=== PATIENT | female | born 1980 | race American Indian/Alaskan Native ===

== ENCOUNTER 2019-09-27 19:33 | Emergency (ER) | payer SELFPAY ==
[2019-09-27 22:54] LABS: Basophils # (Auto) 0.1 K/mm3 (0.0-0.1); Basophils % (Auto) 0.7 % (0.0-1.8); Eosinophils # (Auto) 0.2 K/mm3 (0.0-0.4); Eosinophils % (Auto) 1.7 % (0.0-4.3); Hematocrit 44.2 % (30.3-42.9); Hemoglobin 14.2 gm/dl (10.1-14.3); Lymphocytes # (Auto) 2.6 K/mm3 (1.2-5.4); Lymphocytes % (Auto) 21.2 % (13.4-35.0); Mean Corpuscular HGB Conc 32 % (30-34); Mean Corpuscular Volume 84 fl (79-97); Monocytes # (Auto) 0.9 K/mm3 (0.0-0.8); Monocytes % (Auto) 7.5 % (0.0-7.3); Platelet Count 336 K/mm3 (140-440); Red Blood Count 5.29 M/mm3 (3.65-5.03); Red Cell Distribution Width 15.7 % (13.2-15.2)
[2019-09-27 23:07] LABS: BUN/Creatinine Ratio 9; Blood Urea Nitrogen 9 mg/dL (7-17); Calcium 10.2 mg/dL (8.4-10.2); Hemolysis Index 2
[2019-09-28 01:26] LABS: Bilirubin,Urine NEG (Negative); Blood,Urine LG (Negative); Color,Urine Red (Yellow); Mucus,Urine FEW /HPF; Urobilinogen,Urine < 2.0 mg/dL (<2.0)
[2019-09-28] MEDS ORDERED: amLODIPine 5 MG TAB PO ONE (03:05)
[2019-09-28] MEDS ORDERED: hydroCHLOROthiazide 25 MG TAB PO ONE (03:06)
--- NOTE | 2019-09-28 03:16 | Emergency Department Report ---
ED General Adult HPI - General Chief complaint: Hyperglycemia Stated complaint: BLURRED VISION/HIGH BLOOD SUGAR/BP Time Seen by Provider: 09/28/19 02:50 Source: patient Mode of arrival: Ambulatory Limitations: No Limitations - History of Present Illness Initial comments: Patient presents to the emergency department the chief complaint of blurred vision for the last 2 days. The patient states due to her blurry vision scan to the emergency department where was discovered that her blood pressure and blood glucose levels were elevated. Patient denies a history of hypertension or diabetes but states her mother has diabetes. Patient denies chest pain but does endorse some dizziness is present for the last 2 days as well. My evaluation the patient's blood pressure is 196/131 -: unknown Severity scale (0 -10): 0 Consistency: constant Improves with: none Worsens with: none Associated Symptoms: denies other symptoms Treatments Prior to Arrival: none - Related Data Previous Rx's Medication Instructions Recorded Last Taken Type amLODIPine [Norvasc] 10 mg PO DAILY #30 tab 09/28/19 Unknown Rx hydroCHLOROthiazide [Hctz] 12.5 mg PO QDAY #30 capsule 09/28/19 Unknown Rx metFORMIN [Glucophage] 500 mg PO QDAY #30 tablet 09/28/19 Unknown Rx Allergies Allergy/AdvReac Type Severity Reaction Status Date / Time No Known Allergies Allergy Unverified 09/27/19 22:07 ED Review of Systems ROS: Stated complaint: BLURRED VISION/HIGH BLOOD SUGAR/BP Other details as noted in HPI Comment: All other systems reviewed and negative Constitutional: denies: chills, fever Eyes: vision change. denies: eye pain, eye discharge ENT: denies: ear pain, throat pain Respiratory: denies: cough, shortness of breath, wheezing Cardiovascular: denies: chest pain, palpitations Endocrine: no symptoms reported Gastrointestinal: denies: abdominal pain, nausea, diarrhea Genitourinary: denies: urgency, dysuria, discharge Musculoskeletal: denies: back pain, joint swelling, arthralgia Skin: denies: rash, lesions Neurological: denies: headache, weakness, paresthesias Psychiatric: denies: anxiety, depression Hematological/Lymphatic: denies: easy bleeding, easy bruising ED Past Medical Hx - Past Medical History Previous Medical History?: Yes Hx Hypertension: Yes Additional medical history: Morbid Obesity - Surgical History Past Surgical History?: No - Social History Smoking Status: Current Every Day Smoker Substance Use Type: None - Medications Home Medications: Home Medications Medication Instructions Recorded Confirmed Last Taken Type amLODIPine [Norvasc] 10 mg PO DAILY #30 tab 09/28/19 Unknown Rx hydroCHLOROthiazide [Hctz] 12.5 mg PO QDAY #30 capsule 09/28/19 Unknown Rx metFORMIN [Glucophage] 500 mg PO QDAY #30 tablet 09/28/19 Unknown Rx ED Physical Exam - General Limitations: No Limitations General appearance: alert, in no apparent distress - Head Head exam: Present: atraumatic, normocephalic - Eye Eye exam: Present: normal appearance, PERRL, EOMI - ENT ENT exam: Present: mucous membranes moist - Neck Neck exam: Present: normal inspection - Respiratory Respiratory exam: Present: normal lung sounds bilaterally. Absent: respiratory distress - Cardiovascular Cardiovascular Exam: Present: regular rate, normal rhythm. Absent: systolic murmur, diastolic murmur, rubs, gallop - GI/Abdominal GI/Abdominal exam: Present: soft, normal bowel sounds. Absent: distended, tenderness - Extremities Exam Extremities exam: Present: normal inspection - Back Exam Back exam: Present: normal inspection - Neurological Exam Neurological exam: Present: alert, oriented X3, CN II-XII intact, normal gait. Absent: motor sensory deficit - Psychiatric Psychiatric exam: Present: normal affect, normal mood - Skin Skin exam: Present: warm, dry, intact, normal color. Absent: rash ED Course Vital Signs 09/27/19 09/28/19 09/28/19 19:54 03:06 03:52 Temperature 98.3 F 98 F Pulse Rate 111 H 111 H 111 H Respiratory 20 18 Rate Blood Pressure 190/119 196/131 Blood Pressure 196/131 [Right] O2 Sat by Pulse 96 100 Oximetry ED Medical Decision Making - Lab Data Result diagrams: 09/27/19 22:31 09/27/19 22:31 Lab Results 09/27/19 09/27/19 09/27/19 Range/Units 20:16 22:31 22:31 WBC 12.3 H (4.5-11.0) K/mm3 RBC 5.29 H (3.65-5.03) M/mm3 Hgb 14.2 (10.1-14.3) gm/dl Hct 44.2 H (30.3-42.9) % MCV 84 (79-97) fl MCH 27 L (28-32) pg MCHC 32 (30-34) % RDW 15.7 H (13.2-15.2) % Plt Count 336 (140-440) K/mm3 Lymph % (Auto) 21.2 (13.4-35.0) % [place] % (Auto) 7.5 H (0.0-7.3) % Eos % (Auto) 1.7 (0.0-4.3) % Baso % (Auto) 0.7 (0.0-1.8) % Lymph # 2.6 (1.2-5.4) K/mm3 [place] # 0.9 H (0.0-0.8) K/mm3 Eos # 0.2 (0.0-0.4) K/mm3 Baso # 0.1 (0.0-0.1) K/mm3 Seg Neutrophils % 68.9 (40.0-70.0) % Seg Neutrophils # 8.5 H (1.8-7.7) K/mm3 Sodium 136 L (137-145) mmol/L Potassium 4.8 (3.6-5.0) mmol/L Chloride 87.2 L (98-107) mmol/L Carbon Dioxide 27 (22-30) mmol/L Anion Gap 27 mmol/L BUN 9 (7-17) mg/dL Creatinine 1.0 (0.7-1.2) mg/dL Estimated GFR > 60 ml/min BUN/Creatinine Ratio 9 % Glucose 468 H (65-100) mg/dL POC Glucose 471 H (70-105) Calcium 10.2 (8.4-10.2) mg/dL Urine Color (Yellow) Urine Turbidity (Clear) Urine pH (5.0-7.0) Ur Specific [place] (1.003-1.030) Urine Protein (Negative) mg/dL Urine Glucose (UA) (Negative) mg/dL Urine Ketones (Negative) mg/dL Urine Blood (Negative) Urine Nitrite (Negative) Urine Bilirubin (Negative) Urine Urobilinogen (<2.0) mg/dL Ur Leukocyte Esterase (Negative) Urine WBC (Auto) (0.0-6.0) /HPF Urine RBC (Auto) (0.0-6.0) /HPF U Epithel Cells (Auto) (0-13.0) /HPF Urine Mucus /HPF 09/28/19 Range/Units 00:30 WBC (4.5-11.0) K/mm3 RBC (3.65-5.03) M/mm3 Hgb (10.1-14.3) gm/dl Hct (30.3-42.9) % MCV (79-97) fl MCH (28-32) pg MCHC (30-34) % RDW (13.2-15.2) % Plt Count (140-440) K/mm3 Lymph % (Auto) (13.4-35.0) % [place] % (Auto) (0.0-7.3) % Eos % (Auto) (0.0-4.3) % Baso % (Auto) (0.0-1.8) % Lymph # (1.2-5.4) K/mm3 [place] # (0.0-0.8) K/mm3 Eos # (0.0-0.4) K/mm3 Baso # (0.0-0.1) K/mm3 Seg Neutrophils % (40.0-70.0) % Seg Neutrophils # (1.8-7.7) K/mm3 Sodium (137-145) mmol/L Potassium (3.6-5.0) mmol/L Chloride (98-107) mmol/L Carbon Dioxide (22-30) mmol/L Anion Gap mmol/L BUN (7-17) mg/dL Creatinine (0.7-1.2) mg/dL Estimated GFR ml/min BUN/Creatinine Ratio % Glucose (65-100) mg/dL POC Glucose (70-105) Calcium (8.4-10.2) mg/dL Urine Color Red (Yellow) Urine Turbidity Slightly-cloudy (Clear) Urine pH 6.0 (5.0-7.0) Ur Specific [place] 1.032 H (1.003-1.030) Urine Protein 100 mg/dl (Negative) mg/dL Urine Glucose (UA) >=500 (Negative) mg/dL Urine Ketones 80 (Negative) mg/dL Urine Blood Lg (Negative) Urine Nitrite Neg (Negative) Urine Bilirubin Neg (Negative) Urine Urobilinogen < 2.0 (<2.0) mg/dL Ur Leukocyte Esterase Sm (Negative) Urine WBC (Auto) 78.0 H (0.0-6.0) /HPF Urine RBC (Auto) 61.0 (0.0-6.0) /HPF U Epithel Cells (Auto) 6.0 (0-13.0) /HPF Urine Mucus Few /HPF - Medical Decision Making Due to the patient's symptoms of dizziness and elevated blood pressure CT of the head was obtained to evaluate for any acute intracranial process Patient was given Norvasc and hydrochlorothiazide for BP Critical care attestation.: If time is entered above; I have spent that time in minutes in the direct care of this critically ill patient, excluding procedure time. ED Disposition Clinical Impression: Hypertension, Hyperglycemia Disposition: TO HOME OR SELFCARE Is pt being admited?: No Does the pt Need Aspirin: No Condition: Stable Instructions: Hypertension (ED), Diabetic Hyperglycemia (ED) Additional Instructions: return if worse Prescriptions: amLODIPine [Norvasc] 10 mg PO DAILY #30 tab metFORMIN [Glucophage] 500 mg PO QDAY #30 tablet hydroCHLOROthiazide [Hctz] 12.5 mg PO QDAY #30 capsule Referrals: PRIMARY CARE,MD [Primary Care Provider] - 3-5 Days [facility] [Provider Group] - 3-5 Days [facility] [Provider Group] - 3-[address] [facility] [Outside] - 3-[address] [facility] [Provider Group] - 3-[address] [facility] [Provider Group] - 3-5 Days Time of Disposition: 04:01
--- NOTE | 2019-09-28 03:17 | Cat Scan Report ---
CT HEAD WITHOUT CONTRAST INDICATION: dizziness/blurred vision TECHNIQUE: Axial slices were obtained through the head. Coronal and sagittal reformatted images were obtained. COMPARISON: None available. FINDINGS: There is no intracranial hemorrhage or extra-axial fluid collection. There is cortical atrophy. The v entricles are normal in size and position. Basal cisterns are maintained. There is no mass lesion or midline shift. No acute territorial infarct is identified. Bone windows demonstrate no acute osseous abnormality. Paranasal sinuses and mastoid air cells appear clear. TECHNIQUE: All CT scans at this facility use dose modulation, iterative reconstruction, automated ex posure control, weight based dosing, when appropriate, to reduce radiation dose to as low as reasonab ly achievable. IMPRESSION: 1. No acute intracranial abnormality. There is cortical atrophy Signer Name: Lupillo Roman MD Signed: 09/28/2019 3:13 AM Workstation Name: [id number]
[2019-09-28 04:56] VITALS: BP 170/99
== END 2019-09-28 05:51 | disposition home or self-care (01) ==
LOC: ED 19:33
DX: E11.65 Type 2 diabetes mellitus with hyperglycemia (principal); I10 Essential (primary) hypertension; F17.200 Nicotine dependence, unspecified, uncomplicated; E66.01 Morbid (severe) obesity due to excess calories; Z79.899 Other long term (current) drug therapy; Z79.84 Long term (current) use of oral hypoglycemic drugs
CPT/HCPCS: 36415; 70450; 80048; 81001; 82962; 85025; 87086

== ENCOUNTER 2019-10-05 11:02 | Inpatient (IN) | payer OTHER ==
[2019-10-05] MEDS ORDERED: INSULIN REGULAR, HUMAN 100 UNITS/1 ML IV ONE (11:40)
[2019-10-05] MEDS ORDERED: SODIUM CHLORIDE 0.9% 1000 ML 1,000 ML IV ONE ×2 (11:40→12:54)
--- NOTE | 2019-10-05 11:54 | Emergency Department Report ---
<SHIRA ASHER - Last Filed: 10/05/19 14:47> ED General Adult HPI - General Stated complaint: SYNCOPE HBP HBS Time Seen by Provider: 10/05/19 11:36 - History of Present Illness Initial comments: 39-year-old obese female with a reported history of hypertension and axf-[id number]-[id number] diabetes mellitus currently taking metformin as prescribed presents to emergency department complaining of having episodes of hypertension this morning what is described as a possible syncopal episode. States that she feels a little bit weak and is unsure what is going on with her blood sugar and blood pressure. She was ambulating to the bathroom and had a mechanical fall with no head or chest trauma. After the fall she went back to her bed, side states an hour later she woke up she was had with Dr. lei when she feels she had a syncopal episode. This was worsened, she also experienced some shortness of breath which is worse with ambulation little discomfort to the chest. She reports no fever, chills, sweats, hemoptysis, hematemesis, hematochezia. As she is unsure about polyuria and polydipsia Radiation: non-radiation Quality: dull Consistency: constant Improves with: none Worsens with: none Associated Symptoms: denies: confusion, chest pain, diaphoresis, headaches, loss of appetite, malaise, nausea/vomiting, rash, shortness of breath, syncope Treatments Prior to Arrival: none - Related Data Previous Rx's Medication Instructions Recorded Last Taken Type amLODIPine [Norvasc] 10 mg PO DAILY #30 tab 09/28/19 Unknown Rx hydroCHLOROthiazide [Hctz] 12.5 mg PO QDAY #30 capsule 09/28/19 Unknown Rx metFORMIN [Glucophage] 500 mg PO QDAY #30 tablet 09/28/19 Unknown Rx Allergies Allergy/AdvReac Type Severity Reaction Status Date / Time No Known Allergies Allergy Verified 10/05/19 12:54 ED Review of Systems Comment: All other systems reviewed and negative ED Past Medical Hx - Past Medical History Hx Hypertension: Yes Additional medical history: Morbid Obesity - Social History Smoking Status: Current Every Day Smoker Substance Use Type: None - Medications Home Medications: Home Medications Medication Instructions Recorded Confirmed Last Taken Type amLODIPine [Norvasc] 10 mg PO DAILY #30 tab 09/28/19 Unknown Rx hydroCHLOROthiazide [Hctz] 12.5 mg PO QDAY #30 capsule 09/28/19 Unknown Rx metFORMIN [Glucophage] 500 mg PO QDAY #30 tablet 09/28/19 Unknown Rx ED Physical Exam - General General appearance: alert, other (does appear to be uncomfortable however nontoxic) - Head Head exam: Present: atraumatic, normocephalic - Eye Eye exam: Present: normal appearance, PERRL, EOMI - ENT ENT exam: Present: normal exam, mucous membranes moist - Neck Neck exam: Present: normal inspection - Respiratory Respiratory exam: Present: normal lung sounds bilaterally. Absent: respiratory distress - Cardiovascular Cardiovascular Exam: Present: normal rhythm, tachycardia. Absent: systolic murmur, diastolic murmur, rubs, gallop - GI/Abdominal GI/Abdominal exam: Present: soft, normal bowel sounds - Extremities Exam Extremities exam: Present: full ROM, other (mild swelling to the lower extremities) - Back Exam Back exam: Present: normal inspection. Absent: CVA tenderness (R), CVA tenderness (L) - Neurological Exam Neurological exam: Present: alert, oriented X3, CN II-XII intact - Psychiatric Psychiatric exam: Present: normal affect, normal mood - Skin Skin exam: Present: warm, dry, intact, normal color. Absent: rash ED Medical Decision Making - Lab Data Result diagrams: 10/05/19 11:50 10/05/19 12:58 Lab Results 10/05/19 10/05/19 10/05/19 Range/Units 11:40 11:50 11:50 WBC 12.1 H (4.5-11.0) K/mm3 RBC 5.33 H (3.65-5.03) M/mm3 Hgb 15.0 H (10.1-14.3) gm/dl Hct 45.0 H (30.3-42.9) % MCV 85 (79-97) fl MCH 28 (28-32) pg MCHC 33 (30-34) % RDW 15.5 H (13.2-15.2) % Plt Count 350 (140-440) K/mm3 Lymph % (Auto) 13.6 (13.4-35.0) % [place] % (Auto) 9.4 H (0.0-7.3) % Eos % (Auto) 0.3 (0.0-4.3) % Baso % (Auto) 0.8 (0.0-1.8) % Lymph # 1.6 (1.2-5.4) K/mm3 [place] # 1.1 H (0.0-0.8) K/mm3 Eos # 0.0 (0.0-0.4) K/mm3 Baso # 0.1 (0.0-0.1) K/mm3 Seg Neutrophils % 75.9 H (40.0-70.0) % Seg Neutrophils # 9.2 H (1.8-7.7) K/mm3 D-Dimer 445.93 H (0-234) ng/mlDDU ABG pH (7.350-7.450) pH Units ABG pCO2 mm Hg ABG pO2 (80.0-90.0) mm Hg ABG HCO3 (20.0-26.0) mmol/L ABG O2 Saturation (95.0-99.0) % ABG O2 Content (0.0-44) ABG Base Excess (-2.0-3.0) mmol/L ABG Hemoglobin (12.0-16.0) gm/dl ABG Carboxyhemoglobin (0.0-5.0) % ABG Methemoglobin (0.0-1.5) % Oxyhemoglobin (95.0-99.0) % FiO2 % Sodium (137-145) mmol/L Potassium (3.6-5.0) mmol/L Chloride (98-107) mmol/L Carbon Dioxide (22-30) mmol/L Anion Gap mmol/L BUN (7-17) mg/dL Creatinine (0.7-1.2) mg/dL Estimated GFR ml/min BUN/Creatinine Ratio % Glucose (65-100) mg/dL Calcium (8.4-10.2) mg/dL Total Bilirubin (0.1-1.2) mg/dL AST (5-40) units/L ALT (7-56) units/L Alkaline Phosphatase (35-129) units/L Troponin T (0.00-0.029) ng/mL Total Protein (6.3-8.2) g/dL Albumin (3.9-5) g/dL Albumin/Globulin Ratio % Urine Color Yellow (Yellow) Urine Turbidity Slightly-cloudy (Clear) Urine pH 5.0 (5.0-7.0) Ur Specific [place] 1.024 (1.003-1.030) Urine Protein 100 mg/dl (Negative) mg/dL Urine Glucose (UA) >=500 (Negative) mg/dL Urine Ketones 80 (Negative) mg/dL Urine Blood Lg (Negative) Urine Nitrite Neg (Negative) Urine Bilirubin Neg (Negative) Urine Urobilinogen < 2.0 (<2.0) mg/dL Ur Leukocyte Esterase Sm (Negative) Urine WBC (Auto) 18.0 H (0.0-6.0) /HPF Urine RBC (Auto) 13.0 (0.0-6.0) /HPF U Epithel Cells (Auto) 5.0 (0-13.0) /HPF Urine Mucus Few /HPF Urine HCG, Qual Negative (Negative) 10/05/19 10/05/19 Range/Units 11:50 Unknown WBC (4.5-11.0) K/mm3 RBC (3.65-5.03) M/mm3 Hgb (10.1-14.3) gm/dl Hct (30.3-42.9) % MCV (79-97) fl MCH (28-32) pg MCHC (30-34) % RDW (13.2-15.2) % Plt Count (140-440) K/mm3 Lymph % (Auto) (13.4-35.0) % [place] % (Auto) (0.0-7.3) % Eos % (Auto) (0.0-4.3) % Baso % (Auto) (0.0-1.8) % Lymph # (1.2-5.4) K/mm3 [place] # (0.0-0.8) K/mm3 Eos # (0.0-0.4) K/mm3 Baso # (0.0-0.1) K/mm3 Seg Neutrophils % (40.0-70.0) % Seg Neutrophils # (1.8-7.7) K/mm3 D-Dimer (0-234) ng/mlDDU ABG pH 7.311 L (7.350-7.450) pH Units ABG pCO2 18.7 mm Hg ABG pO2 94.3 H (80.0-90.0) mm Hg ABG HCO3 9.2 L (20.0-26.0) mmol/L ABG O2 Saturation 97.1 (95.0-99.0) % ABG O2 Content 20.3 (0.0-44) ABG Base Excess -14.3 L (-2.0-3.0) mmol/L ABG Hemoglobin 15.2 (12.0-16.0) gm/dl ABG Carboxyhemoglobin 1.9 (0.0-5.0) % ABG Methemoglobin 0.6 (0.0-1.5) % Oxyhemoglobin 94.7 L (95.0-99.0) % FiO2 21 % Sodium 131 L (137-145) mmol/L Potassium 4.0 (3.6-5.0) mmol/L Chloride 85.4 L (98-107) mmol/L Carbon Dioxide 8 L* (22-30) mmol/L Anion Gap 43 mmol/L BUN 12 (7-17) mg/dL Creatinine 1.2 (0.7-1.2) mg/dL Estimated GFR > 60 ml/min BUN/Creatinine Ratio 10 % Glucose 684 H* (65-100) mg/dL Calcium 10.2 (8.4-10.2) mg/dL Total Bilirubin 0.60 (0.1-1.2) mg/dL AST 14 (5-40) units/L ALT 18 (7-56) units/L Alkaline Phosphatase 116 (35-129) units/L Troponin T < 0.010 (0.00-0.029) ng/mL Total Protein 9.0 H (6.3-8.2) g/dL Albumin 4.8 (3.9-5) g/dL Albumin/Globulin Ratio 1.1 % Urine Color (Yellow) Urine Turbidity (Clear) Urine pH (5.0-7.0) Ur Specific [place] (1.003-1.030) Urine Protein (Negative) mg/dL Urine Glucose (UA) (Negative) mg/dL Urine Ketones (Negative) mg/dL Urine Blood (Negative) Urine Nitrite (Negative) Urine Bilirubin (Negative) Urine Urobilinogen (<2.0) mg/dL Ur Leukocyte Esterase (Negative) Urine WBC (Auto) (0.0-6.0) /HPF Urine RBC (Auto) (0.0-6.0) /HPF U Epithel Cells (Auto) (0-13.0) /HPF Urine Mucus /HPF Urine HCG, Qual (Negative) - EKG Data EKG shows normal: sinus rhythm Rate: tachycardia - EKG Data When compared to previous EKG there are: no significant change Interpretation: LVH - Radiology Data Radiology results: report reviewed [facility] [address] [place] [address] XRay Report Signed Patient: ISIDRO CAT PEREZ MR#: [id number] : 1980 Acct:[id number] Age/Sex: 39 / F ADM Date: 10/05/19 Loc: ED Attending Dr: Ordering Physician: GEORGETTE ARREDONDO Date of Service: 10/05/19 Procedure(s): XR chest routine 2V Accession Number(s): [id number] cc: GEORGETTE ARREDONDO Fluoro Time In Minutes: CHEST 2 VIEWS INDICATION / CLINICAL INFORMATION: Syncope. COMPARISON: None available. FINDINGS: SUPPORT DEVICES: None. HEART / MEDIASTINUM: The heart size and pulmonary vasculature are normal. There is mild aortic tortuosity without aneurysm. LUNGS / PLEURA: No significant pulmonary or pleural abnormality. No pneumothora x. ADDITIONAL FINDINGS: No significant additional findings. IMPRESSION: No acute findings. Signer Name: Nicanor Rousseau MD Signed: 10/05/2019 12:56 PM Workstation Name: [id number] Transcribed By: RT Dictated By: Nicanor Rousseau MD Electronically Authenticated By: Nicanor Rousseau MD Signed Date/Time: 10/05/19 1256 DD/ 1255 TD/TT: Next study Ventilation perfusion scan showed low probability for pulmonary embolism - Medical Decision Making This 39-year-old obese female patient presents with hyperglycemia and symptoms concerning for DKA. Differential diagnosis includes other metabolic causes of hyperglycemia such as HHS, worsened diabetes or medication noncompliance. Consid ered possible causes of DKA to include infection (pancreatitis, UTI, pneumonia), infarction / ischemia (acute coronary syndrome, cerebral vascular accident), medication non-compliance with insulin therapy, illicit substance abuse, iatrogenic (including prescription medications and drug-drug interactions), idiopathic causes. Most likely etiology at this time is for control. Plan to treat the hyperglycemia as below while simultaneously evaluating and treating potential underlying etiologies. Plan: POC glucose monitoring (Q1H), BMP (Q2H), blood gas, UA, serum ketones, CBC, LFTs / lipase, infectious workup (lactate/blood cultures, CHEST X-RAY) IVF, IV Insulin therapy, serial reassessment, admission for treatment of hyperglycemia This 39-year-old obese female patient also presented with history consistent with possible syncope, most likely due to cardiovascular/endocrinological. Differential diagnosis includes reflex syncope (i.e. vasovagal syncope). Resume suspicion suspicion for orthostatic syncope given lack lack of blood sugar control and a possible element of dehydration, no evidence of acute life threatening hemorrhage. Presentation not consistent with seizures given short time course, no postictal state, no seizure activity. Low suspicion for acute neurologic catastrophes to include ICH given lack of trauma, risk factors for bleeding diatheses. Low suspicion for vascular catastrophes to include PE, thoracic aortic dissection, AAA rupture. Presentation not consistent with acute life threatening arrhythmia, structural heart disease, electrical conduction abnormalities, or ACS . However, given age, cardiovascular risk factors, history & physical, will workup and evaluate for the need to admit. Plan: labs, troponin, CXR, EKG, serial reassessment ED Disposition Clinical Impression: DKA (diabetic ketoacidoses) Disposition: DC-01 TO HOME OR SELFCARE Is pt being admited?: No Does the pt Need Aspirin: No Condition: Stable <MARK CARRILLO - Last Filed: 10/05/19 14:54> ED Review of Systems ROS: Stated complaint: SYNCOPE HBP HBS Other details as noted in HPI ED Course Vital Signs 10/05/19 10/05/19 10/05/19 11:15 11:31 12:08 Temperature 98.2 F Pulse Rate 123 H Respiratory 20 Rate Blood Pressure 157/99 157/99 142/93 O2 Sat by Pulse 99 99 99 Oximetry 10/05/19 10/05/19 12:30 13:00 Temperature Pulse Rate 101 H 99 H Respiratory 24 26 H Rate Blood Pressure 158/105 135/81 O2 Sat by Pulse 98 98 Oximetry ED Medical Decision Making - Lab Data Result diagrams: 10/05/19 11:50 10/05/19 12:58 Critical Care Time: Yes Critical care time in (mins) excluding proc time.: 45 Critical care attestation.: If time is entered above; I have spent that time in minutes in the direct care of this critically ill patient, excluding procedure time. ED Disposition Is pt being admited?: No Does the pt Need Aspirin: No Time of Disposition: 14:54
[2019-10-05 12:08] LABS: Basophils # (Auto) 0.1 K/mm3 (0.0-0.1); Basophils % (Auto) 0.8 % (0.0-1.8); Eosinophils % (Auto) 0.3 % (0.0-4.3); Lymphocytes # (Auto) 1.6 K/mm3 (1.2-5.4); Lymphocytes % (Auto) 13.6 % (13.4-35.0); Mean Corpuscular HGB Conc 33 % (30-34); Mean Corpuscular Volume 85 fl (79-97); Monocytes # (Auto) 1.1 K/mm3 (0.0-0.8); Monocytes % (Auto) 9.4 % (0.0-7.3); Platelet Count 350 K/mm3 (140-440); Red Blood Count 5.33 M/mm3 (3.65-5.03); Red Cell Distribution Width 15.5 % (13.2-15.2)
[2019-10-05 12:09] LABS: ABG Base Excess -14.3 mmol/L (-2.0-3.0); ABG HCO3 9.2 mmol/L (20.0-26.0); ABG Methemoglobin 0.6 % (0.0-1.5); ABG Oxygen Saturation 97.1 % (95.0-99.0); ABG PCO2 18.7 mm Hg; ABG PH 7.311 pH Units (7.350-7.450); ABG PO2 94.3 mm Hg (80.0-90.0)
[2019-10-05 12:12] LABS: Bilirubin,Urine NEG (Negative); Blood,Urine LG (Negative); Color,Urine Yellow (Yellow); Mucus,Urine FEW /HPF; Urobilinogen,Urine < 2.0 mg/dL (<2.0)
[2019-10-05 12:13] LABS: HCG Qualitative,Urine Negative (Negative)
[2019-10-05 12:32] LABS: Alanine Aminotransferase 18 units/L (7-56); Albumin 4.8 g/dL (3.9-5); BUN/Creatinine Ratio 10; Blood Urea Nitrogen 12 mg/dL (7-17); Calcium 10.2 mg/dL (8.4-10.2); Hemolysis Index 38
[2019-10-05] MEDS ORDERED: ONDANSETRON 4 MG/2 ML INJ IV STA (12:49)
[2019-10-05] MEDS ORDERED: DEXTROSE 50% IN WATER (25GM) 50 ML SYRINGE IV PRN (12:51)
[2019-10-05] MEDS ORDERED: cefTRIAXone/NS 1 GM/50 ML 1 GM/50 ML BAG IV ONE (12:53)
--- NOTE | 2019-10-05 13:00 | XRay Report ---
CHEST 2 VIEWS INDICATION / CLINICAL INFORMATION: Syncope. COMPARISON: None available. FINDINGS: SUPPORT DEVICES: None. HEART / MEDIASTINUM: The heart size and pulmonary vasculature are normal. There is mild aortic tortuo sity without aneurysm. LUNGS / PLEURA: No significant pulmonary or pleural abnormality. No pneumothorax. ADDITIONAL FINDINGS: No significant additional findings. IMPRESSION: No acute findings. Signer Name: Nicanor Rousseau MD Signed: 10/05/2019 12:56 PM Workstation Name: [id number]
--- NOTE | 2019-10-05 13:35 | History and Physical Report ---
History of Present Illness Chief complaint: I think i passed out History of present illness: 39-year-old Female with MO, DM, HTN, NIcotine Dependence, Obesity Hypoventilation Syndrome presents to ED for evaluation. Patient states that she has been "feeling sick" for the past 4 days with progressively worsening sympto ms over the past 1 day. Patient acknowledges nausea, multiple episodes of vomiting, inability to tolerate oral intake, and elevated blood glucose levels. Patient states that she awoke from sleep this morning feeling worse than she has felt over the past 2 days. Patient states that she was ambulating to the bathroom and experienced a fall due to losing her balance. Patient states that she went back to her bed and sat on the side of her bed. Patient acknowledges polydipsia, polyuria, and polyphagia. Patient states that she is uncertain if if she lost consciousness but reports feeling has though she forgot what happened. EMS was notified and upon arrival the patient was found to be in di stress and subsequently transported to [facility] for further care and evaluation. Patient seen and evaluated in the emergency department. Patient lab and imaging studies reviewed. Patient found to have diabetic ketoacidosis, metabolic acidosis, as well as systemic inflammatory response syndrome. Patient admitted to ICU and initiated on DKA protocol due to high risk for endocrine decompensation. Patient denies fever, chills, chest pain, palpitation, bright red blood per rectum, productive cough, recent ill contacts, ingestion of food/water from new or different sources, trauma, vertigo, seizures, hematuria. No prior admission for review. All medication listed at time of admission have been reconciled. Past History Past Medical History: diabetes, hypertension, other (See HPI) Past Surgical History: No surgical history, Other (Reviewed) Social history: smoking Family history: diabetes, hypertension Medications and Allergies Allergies Allergy/AdvReac Type Severity Reaction Status Date / Time No Known Allergies Allergy Verified 10/05/19 12:54 Home Medications Medication Instructions Recorded Confirmed Last Taken Type amLODIPine [Norvasc] 10 mg PO DAILY #30 tab 09/28/19 Unknown Rx hydroCHLOROthiazide [Hctz] 12.5 mg PO QDAY #30 capsule 09/28/19 Unknown Rx metFORMIN [Glucophage] 500 mg PO QDAY #30 tablet 09/28/19 Unknown Rx Active Meds: Active Medications Dextrose (D50w (25gm) Syringe) 0 ml IV Q30MIN PRN; Protocol PRN Reason: Hypoglycemia Insulin Human Regular 100 (units/ Sodium Chloride) 100 mls @ 1 mls/hr IV TITR STEVE; Protocol Sodium Chloride (Nacl 0.9% 1000 Ml) 1,000 mls @ 999 mls/hr IV BOLUS ONE Stop: 10/05/19 13:54 Review of Systems Constitutional: no weight loss, no weight gain, no fever, no chills Ears, nose, mouth and throat: no ear pain, no ear discharge, no tinnitis, no decreased hearing, no nose pain, no nasal congestion Breasts: no change in shape, no swelling, no mass Cardiovascular: no chest pain, no orthopnea, no palpitations, no rapid/irregular heart beat, no edema Respiratory: no cough, no cough with sputum, no shortness of breath Gastrointestinal: nausea, vomiting, no abdominal pain Genitourinary Female: no pelvic pain, no flank pain, no menorrhagia, no dysuria, no urgency, no stress incontinence (Okay) Rectal: no pain, no incontinence, no bleeding Musculoskeletal: no neck stiffness, no neck pain, no shooting arm pain, no arm numbness/tingling, no low back pain Integumentary: no rash, no pruritis, no redness, no sores, no wounds Neurological: no transient paralysis, no paralysis, no weakness, no parathesias, no numbness, no tingling, no seizures Psychiatric: no anxiety, no memory loss, no sleep disturbances, no insomnia, no change in appetite, no change in libido, no suicidal ideation Endocrine: polyphagia, polydipsia, polyuria, nocturia, fatigue, no cold intolerance, no excessive thirst (He had his AV was) Hematologic/Lymphatic: no easy bruising, no easy bleeding Allergic/Immunologic: no urticaria, no allergic rhinitis, no wheezing Exam - Constitutional Vitals: Temp Pulse Resp BP Pulse Ox 98.2 F 99 H 26 H 135/81 98 10/05/19 11:15 10/05/19 13:00 10/05/19 13:00 10/05/19 13:00 10/05/19 13:00 General appearance: Present: mild distress - EENT Eyes: Present: PERRL ENT: hearing intact, clear oral mucosa - Neck Neck: Present: supple, normal ROM - Respiratory Respiratory effort: normal Respiratory: bilateral: CTA - Cardiovascular Heart Sounds: Present: S1 & S2. Absent: rub, click - Extremities Extremities: pulses symmetrical, No edema Peripheral Pulses: within normal limits - Abdominal General gastrointestinal: Present: soft, non-tender, non-distended, normal bowel sounds Female genitourinary: Present: normal - Integumentary Integumentary: Present: dry, clammy, decreased turgor - Musculoskeletal Musculoskeletal: generalized weakness - Psychiatric Psychiatric: appropriate mood/affect, intact judgment & insight - Neurologic Neurologic: CNII-XII intact, moves all extremities Results - Labs CBC & Chem 7: 10/05/19 11:50 10/05/19 19:23 Labs: Abnormal lab results 10/05/19 10/05/19 10/05/19 Range/Units 11:40 11:50 11:50 WBC 12.1 H (4.5-11.0) K/mm3 RBC 5.33 H (3.65-5.03) M/mm3 Hgb 15.0 H (10.1-14.3) gm/dl Hct 45.0 H (30.3-42.9) % RDW 15.5 H (13.2-15.2) % [place] % (Auto) 9.4 H (0.0-7.3) % [place] # 1.1 H (0.0-0.8) K/mm3 Seg Neutrophils % 75.9 H (40.0-70.0) % Seg Neutrophils # 9.2 H (1.8-7.7) K/mm3 D-Dimer 445.93 H (0-234) ng/mlDDU ABG pH (7.350-7.450) pH Units ABG pO2 (80.0-90.0) mm Hg ABG HCO3 (20.0-26.0) mmol/L ABG Base Excess (-2.0-3.0) mmol/L Oxyhemoglobin (95.0-99.0) % Sodium (137-145) mmol/L Chloride (98-107) mmol/L Carbon Dioxide (22-30) mmol/L Glucose (65-100) mg/dL Total Protein (6.3-8.2) g/dL Urine WBC (Auto) 18.0 H (0.0-6.0) /HPF 10/05/19 10/05/19 Range/Units 11:50 Unknown WBC (4.5-11.0) K/mm3 RBC (3.65-5.03) M/mm3 Hgb (10.1-14.3) gm/dl Hct (30.3-42.9) % RDW (13.2-15.2) % [place] % (Auto) (0.0-7.3) % [place] # (0.0-0.8) K/mm3 Seg Neutrophils % (40.0-70.0) % Seg Neutrophils # (1.8-7.7) K/mm3 D-Dimer (0-234) ng/mlDDU ABG pH 7.311 L (7.350-7.450) pH Units ABG pO2 94.3 H (80.0-90.0) mm Hg ABG HCO3 9.2 L (20.0-26.0) mmol/L ABG Base Excess -14.3 L (-2.0-3.0) mmol/L Oxyhemoglobin 94.7 L (95.0-99.0) % Sodium 131 L (137-145) mmol/L Chloride 85.4 L (98-107) mmol/L Carbon Dioxide 8 L* (22-30) mmol/L Glucose 684 H* (65-100) mg/dL Total Protein 9.0 H (6.3-8.2) g/dL Urine WBC (Auto) (0.0-6.0) /HPF Assessment and Plan - Patient Problems (1) DKA (diabetic ketoacidoses) Current Visit: Yes Status: Acute Plan to address problem: Admit to ICU, initiate DKA per a protocol: IV fluid resuscitation therapy, insulin drip, serial BMP to monitor anion gap, monitor urine output every shift, potassium supplementation as per protocol. Critical care team consulted in ED. The high probability of a clinically significant, sudden or life threatening deterioration of the [neuro, endocrine, and renal] system(s) required my full and direct attention, intervention and personal management. The aggregate critical care time was [65] minutes. This time is in addition to time spent performing reported procedures but includes the following: [x] Data Review and interpretation [x] Patient assessment and monitoring of vital signs [x] Documentation [x] Medication orders and management (2) Metabolic acidosis Current Visit: Yes Status: Acute Plan to address problem: IV fluid resuscitation therapy, BMP, repeat BMP in a.m. (3) Morbid obesity Current Visit: Yes Status: Acute Plan to address problem: Balanced diet, increase physical activity at discharge, outpatient bariatric surgery consult. (4) Obesity hypoventilation syndrome Current Visit: Yes Status: Acute Plan to address problem: Submental oxygen, nebulizer therapy, noninvasive positive pressure ventilation as clinically indicated, outpatient pulmonary follow-up for sleep study. (5) Nicotine dependence Current Visit: Yes Status: Acute Qualifiers: Nicotine product type: cigarettes Substance use status: in withdrawal Qualified Code(s): F17.213 - Nicotine dependence, cigarettes, with withdrawal Plan to address problem: Smoking cessation counseling, supportive care, +15 minutes (6) DVT prophylaxis Current Visit: Yes Status: Acute Plan to address problem: SCD to bilateral lower extremities while in bed, prophylactic heparin.
[2019-10-05 13:40] LABS: BUN/Creatinine Ratio 9; Blood Urea Nitrogen 11 mg/dL (7-17); Calcium 10.1 mg/dL (8.4-10.2); Hemolysis Index 100
[2019-10-05] MEDS ORDERED: ALBUTEROL 2.5 MG/3 ML NEBU IH PRN (13:45)
--- NOTE | 2019-10-05 14:11 | Nuclear Medicine Report ---
NUCLEAR MEDICINE VENTILATION/PERFUSION LUNG SCAN INDICATION: elevated dimer with sob and chest pain. TECHNIQUE: 14.3 mCi of Xe-133 were given by inhalation. 4.6 mCi of Tc-99m MAA were given by IV. COMPARISON: Chest radiograph dated 10/05/2019. FINDINGS: VENTILATION: No significant ventilation defects. PERFUSION: No significant perfusion defects. ADDITIONAL FINDINGS: None. IMPRESSION: 1. Low probability for pulmonary embolism. Signer Name: Harry Morales MD Signed: 10/05/2019 2:06 PM Workstation Name: [id number]
[2019-10-05] MEDS: INSULIN REGULAR, HUMAN 100 UNITS in SODIUM CHLORIDE 0.9% 99 ML IV SCH (14:51)
[2019-10-05 16:44] LABS: BUN/Creatinine Ratio 8; Blood Urea Nitrogen 10 mg/dL (7-17); Calcium 9.7 mg/dL (8.4-10.2); Hemolysis Index 12
[2019-10-05] MEDS ORDERED: SODIUM BICARB 8.4% 50 MEQ/50 ML SYRINGE IV ONE ×2 (17:03→17:22)
[2019-10-05] MEDS ORDERED: SODIUM CHLORIDE 0.9% 1000 ML 1,000 ML IV SCH (17:15)
[2019-10-05 17:52] LABS: BUN/Creatinine Ratio 9; Blood Urea Nitrogen 11 mg/dL (7-17); Calcium 9.7 mg/dL (8.4-10.2); Hemolysis Index 0
[2019-10-05] MEDS: D5W/0.45% NACL/KCL 20 MEQ 20 MEQ/1,000 ML BAG IV SCH (18:40)
[2019-10-05] MEDS ORDERED: MAGNESIUM SULFATE 1 GM in SODIUM CHLORIDE 0.9% 50 ML IV ONE (18:44)
[2019-10-05 19:53] LABS: BUN/Creatinine Ratio 8; Blood Urea Nitrogen 10 mg/dL (7-17); Calcium 9.6 mg/dL (8.4-10.2); Hemolysis Index 8
--- NOTE | 2019-10-05 20:38 | Event Note ---
Date: 10/05/19 39 year old admitted to ICU for DKA. Patient placed on DKA protocol. Full consult to follow
[2019-10-05 21:51] LABS: BUN/Creatinine Ratio 9; Blood Urea Nitrogen 11 mg/dL (7-17); Calcium 9.4 mg/dL (8.4-10.2); Hemolysis Index 41
[2019-10-06] MEDS: HEPARIN 5,000 UNIT/1 ML VIAL SUB-Q SCH ×3 (00:30→22:04)
[2019-10-06] MEDS: INSULIN REGULAR, HUMAN 100 UNITS in SODIUM CHLORIDE 0.9% 99 ML IV SCH ×2 (00:30→14:18)
[2019-10-06] MEDS: D5W/0.45% NACL/KCL 20 MEQ 20 MEQ/1,000 ML BAG IV SCH ×3 (03:34→20:15)
[2019-10-06 05:34] LABS: BUN/Creatinine Ratio 10; Blood Urea Nitrogen 10 mg/dL (7-17); Calcium 9.1 mg/dL (8.4-10.2); Hemolysis Index 74
[2019-10-06] MEDS: ONDANSETRON 4 MG/2 ML INJ IV PRN (09:02)
[2019-10-06] MEDS: cefTRIAXone/NS 1 GM/50 ML 1 GM/50 ML BAG IV SCH ×3 (09:03→22:04)
[2019-10-06] MEDS ORDERED: ACETAMINOPHEN 325 MG TAB PO PRN (10:02)
[2019-10-06] MEDS ORDERED: METOCLOPRAMIDE 10 MG/2 ML INJ IV PRN (10:06)
--- NOTE | 2019-10-06 10:07 | Progress Note ---
Assessment and Plan Assessment and plan: Self he [id number] woman who presents to the hospital after feeling sick for 4 days. Complained of multiple episodes of nausea vomiting and inability to tolerate p.o. She also complained of polyuria polyphagia and polydipsia. DKA Continue insulin drip, IV fluids. Tobacco abuse/dependence Smoking cessation counseling performed for 10 minutes, nicotine patches when necessary Intractable nausea vomiting Keep n.p.o., IV fluids. Nuclear medicine gastric emptying study when patient able to tolerate it Morbid obesity Preventative health counseling performed for 17 minutes DUB; has been having constant menstrual bleeding for over a month. Obtain ultrasound and consult [facility], patient is not anemic. Elevated D-dimers; VQ scan negative Sirs. No suspicion of infection in this patient. Chest x-ray negative. UA shows sediments, not consistent with infection DVT prophylaxis chemical Critical care time 35 minutes History Interval history: Review of systems Constitutional: No fevers, complaining of generalized weakness CVS: No chest pain, no orthopnea, no pedal edema GI: Complaining of nausea vomiting. Respiratory: , no wheezing, no coughing Hospitalist Physical - Physical exam Narrative exam: General.: Mild distress HEENT: Moist mucous membranes, extraocular muscles intact, no lymphadenopathy Neck: supple Cardiac: S1-S2 heard Lungs: clear to auscultation bilaterally Abdomen: soft , nontender, nondistended, bowel sounds positive Extremities: no edema clubbing or cyanosis Skin: no rash or lesions Neurologic: no gross focal deficits Psych: calm, and cooperative - Constitutional Vitals: Temp Pulse Resp BP Pulse Ox 98.4 F 92 H 26 H 134/81 97 10/05/19 23:29 10/06/19 09:00 10/06/19 09:00 10/06/19 09:00 10/06/19 09:00 General appearance: Present: mild distress Results - Labs CBC & Chem 7: 10/05/19 11:50 10/06/19 04:50 Labs: Laboratory Last Values WBC 12.1 K/mm3 (4.5-11.0) H 10/05/19 11:50 RBC 5.33 M/mm3 (3.65-5.03) H 10/05/19 11:50 Hgb 15.0 gm/dl (10.1-14.3) H 10/05/19 11:50 Hct 45.0 % (30.3-42.9) H 10/05/19 11:50 MCV 85 fl (79-97) 10/05/19 11:50 MCH 28 pg (28-32) 10/05/19 11:50 MCHC 33 % (30-34) 10/05/19 11:50 RDW 15.5 % (13.2-15.2) H 10/05/19 11:50 Plt Count 350 K/mm3 (140-440) 10/05/19 11:50 Lymph % (Auto) 13.6 % (13.4-35.0) 10/05/19 11:50 [place] % (Auto) 9.4 % (0.0-7.3) H 10/05/19 11:50 Eos % (Auto) 0.3 % (0.0-4.3) 10/05/19 11:50 Baso % (Auto) 0.8 % (0.0-1.8) 10/05/19 11:50 Lymph # 1.6 K/mm3 (1.2-5.4) 10/05/19 11:50 [place] # 1.1 K/mm3 (0.0-0.8) H 10/05/19 11:50 Eos # 0.0 K/mm3 (0.0-0.4) 10/05/19 11:50 Baso # 0.1 K/mm3 (0.0-0.1) 10/05/19 11:50 Seg Neutrophils % 75.9 % (40.0-70.0) H 10/05/19 11:50 Seg Neutrophils # 9.2 K/mm3 (1.8-7.7) H 10/05/19 11:50 D-Dimer 445.93 ng/mlDDU (0-234) H 10/05/19 11:50 ABG pH 7.311 pH Units (7.350-7.450) L 10/05/19 Unknown ABG pCO2 18.7 mm Hg 10/05/19 Unknown ABG pO2 94.3 mm Hg (80.0-90.0) H 10/05/19 Unknown ABG HCO3 9.2 mmol/L (20.0-26.0) L 10/05/19 Unknown ABG O2 Saturation 97.1 % (95.0-99.0) 10/05/19 Unknown ABG O2 Content 20.3 (0.0-44) 10/05/19 Unknown ABG Base Excess -14.3 mmol/L (-2.0-3.0) L 10/05/19 Unknown ABG Hemoglobin 15.2 gm/dl (12.0-16.0) 10/05/19 Unknown ABG Carboxyhemoglobin 1.9 % (0.0-5.0) 10/05/19 Unknown ABG Methemoglobin 0.6 % (0.0-1.5) 10/05/19 Unknown Oxyhemoglobin 94.7 % (95.0-99.0) L 10/05/19 Unknown FiO2 21 % 10/05/19 Unknown Sodium 139 mmol/L (137-145) 10/06/19 04:50 Potassium 3.6 mmol/L (3.6-5.0) 10/06/19 04:50 Chloride 101.1 mmol/L (98-107) 10/06/19 04:50 Carbon Dioxide 12 mmol/L (22-30) L 10/06/19 04:50 Anion Gap 30 mmol/L 10/06/19 04:50 BUN 10 mg/dL (7-17) 10/06/19 04:50 Creatinine 1.0 mg/dL (0.7-1.2) 10/06/19 04:50 Estimated GFR > 60 ml/min 10/06/19 04:50 BUN/Creatinine Ratio 10 % 10/06/19 04:50 Glucose 196 mg/dL (65-100) H 10/06/19 04:50 POC Glucose 185 (70-105) H 10/06/19 08:28 Calcium 9.1 mg/dL (8.4-10.2) 10/06/19 04:50 Phosphorus 3.30 mg/dL (2.5-4.5) 10/05/19 12:58 Magnesium 2.50 mg/dL (1.7-2.3) H 10/05/19 12:58 Total Bilirubin 0.60 mg/dL (0.1-1.2) 10/05/19 11:50 AST 14 units/L (5-40) 10/05/19 11:50 ALT 18 units/L (7-56) 10/05/19 11:50 Alkaline Phosphatase 116 units/L (35-129) 10/05/19 11:50 Troponin T < 0.010 ng/mL (0.00-0.029) 10/05/19 11:50 Total Protein 9.0 g/dL (6.3-8.2) H 10/05/19 11:50 Albumin 4.8 g/dL (3.9-5) 10/05/19 11:50 Albumin/Globulin Ratio 1.1 % 10/05/19 11:50 Urine Color Yellow (Yellow) 10/05/19 11:40 Urine Turbidity Slightly-cloudy (Clear) 10/05/19 11:40 Urine pH 5.0 (5.0-7.0) 10/05/19 11:40 Ur Specific [place] 1.024 (1.003-1.030) 10/05/19 11:40 Urine Protein 100 mg/dl mg/dL (Negative) 10/05/19 11:40 Urine Glucose (UA) >=500 mg/dL (Negative) 10/05/19 11:40 Urine Ketones 80 mg/dL (Negative) 10/05/19 11:40 Urine Blood Lg (Negative) 10/05/19 11:40 Urine Nitrite Neg (Negative) 10/05/19 11:40 Urine Bilirubin Neg (Negative) 10/05/19 11:40 Urine Urobilinogen < 2.0 mg/dL (<2.0) 10/05/19 11:40 Ur Leukocyte Esterase Sm (Negative) 10/05/19 11:40 Urine WBC (Auto) 18.0 /HPF (0.0-6.0) H 10/05/19 11:40 Urine RBC (Auto) 13.0 /HPF (0.0-6.0) 10/05/19 11:40 U Epithel Cells (Auto) 5.0 /HPF (0-13.0) 10/05/19 11:40 Urine Mucus Few /HPF 10/05/19 11:40 Urine HCG, Qual Negative (Negative) 10/05/19 11:40 Active Medications - Current Medications Current Medications: Generic Name Dose Route Start Last Admin Trade Name Freq PRN Reason Stop Dose Admin Acetaminophen 650 mg 10/06/19 10:02 Tylenol PO Q4H PRN Pain, Mild (1-3) Albuterol 2.5 mg 10/05/19 13:45 Proventil IH Q3HRT PRN Shortness Of Breath Dextrose 0 ml 10/05/19 12:51 D50w (25gm) Syringe IV Q30MIN PRN Hypoglycemia Protocol Heparin Sodium (Porcine) 5,000 unit 10/05/19 22:00 10/06/19 09:02 Heparin SUB-Q 5,000 unit Q12HR STEVE Administration Insulin Human Regular 100 100 mls @ 1 mls/hr 10/05/19 13:30 10/06/19 09:53 units/ Sodium Chloride IV 6 units/hr TITR STEVE 6 mls/hr Titration Protocol 1 UNITS/HR Ceftriaxone Sodium 1 gm in 50 mls @ 100 mls/hr 10/05/19 22:00 10/06/19 09:07 Rocephin/Ns 1 Gm/50 Ml IV 10/07/19 23:59 100 mls/hr Q12HR STEVE Administration Protocol Sodium Chloride 1,000 mls @ 150 mls/hr 10/05/19 17:15 Nacl 0.9% 1000 Ml IV DIRECT STEVE Potassium Chloride/Dextrose/Sod Cl 20 meq in 1,000 mls @ 125 mls/hr 10/05/19 19:00 10/06/19 03:34 D5w/0.45% Nacl/Kcl 20 Meq IV 125 mls/hr DIRECT STEVE Administration Nicotine 14 mg 10/07/19 10:00 Habitrol TD QDAY STEVE Ondansetron HCl 4 mg 10/06/19 08:46 10/06/19 09:02 Zofran IV 4 mg Q4H PRN Administration Nausea And Vomiting Sodium Chloride 10 ml 10/05/19 22:00 10/06/19 09:07 Sodium Chloride Flush Syringe 10 Ml IV 10 ml BID STEVE Administration Sodium Chloride 10 ml 10/05/19 13:45 Sodium Chloride Flush Syringe 10 Ml IV PRN PRN LINE FLUSH
--- NOTE | 2019-10-06 12:28 | Consultation ---
History of Present Illness Consult date: 10/06/19 Requesting physician: LONG RAMOS Reason for consult: other (CRITICAL CARE) History of present illness: 39-year-old Female with DM, HTN, Nicotine Dependence, Obesity Hypoventilation Syndrome presents to ED for evaluation. Patient states that she has been "feeling sick" for the past 4 days with progressively worsening symptoms over the past 1 day. Patient acknowledges nausea, multiple episodes of vomiting, inability to tolerate oral intake, and elevated blood glucose levels. Patient states that she awoke from sleep this morning feeling worse than she has felt over the past 2 days. Patient states that she was ambulating to the bathroom and experienced a fall due to losing her balance. Patient states that she went back to her bed and sat on the side of her bed. Patient acknowledges polydipsia, polyuria, and polyphagia. Patient states that she is uncertain if if she lost consciousness but reports feeling has though she forgot what happened. EMS was notified and upon arrival the patient was found to be in distress and subsequently transported to [facility] for further care and evaluation. Patient seen and evaluated in the emergency department. Patient lab and imaging studies reviewed. Patient found to have diabetic ketoacidosis, metabolic acidosis, as well as systemic inflammatory response syndrome. Patient admitted to ICU and initiated on DKA protocol due to high risk for endocrine decompensa tion I have been consulted fro critical care management. Thank you for the consult. Patient was seen and examined. Vitals, labs, medications, chart and imaging reviewed. 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) Family history: diabetes, hypertension Medications and Allergies Allergies Allergy/AdvReac Type Severity Reaction Status Date / Time raw onions Allergy Swelling Uncoded 10/06/19 00:35 Home Medications Medication Instructions Recorded Confirmed Last Taken Type amLODIPine [Norvasc] 10 mg PO DAILY #30 tab 09/28/19 10/06/19 10/05/19 09:00 Rx hydroCHLOROthiazide [Hctz] 12.5 mg PO QDAY #30 capsule 09/28/19 10/06/19 10/05/19 09:00 Rx metFORMIN [Glucophage] 500 mg PO QDAY #30 tablet 09/28/19 10/06/19 10/04/19 09:00 Rx Active Meds: Active Medications Acetaminophen (Tylenol) 650 mg PO Q4H PRN PRN Reason: Pain, Mild (1-3) Albuterol (Proventil) 2.5 mg IH Q3HRT PRN PRN Reason: Shortness Of Breath Dextrose (D50w (25gm) Syringe) 0 ml IV Q30MIN PRN; Protocol PRN Reason: Hypoglycemia Heparin Sodium (Porcine) (Heparin) 5,000 unit SUB-Q Q12HR [facility] Last Admin: 10/06/19 09:02 Dose: 5,000 unit Documented by: Insulin Human Regular 100 (units/ Sodium Chloride) 100 mls @ 1 mls/hr IV TITR [facility]; Protocol Last Titration: 10/06/19 10:56 Dose: 4 units/hr, 4 mls/hr Documented by: Ceftriaxone Sodium (Rocephin/Ns 1 Gm/50 Ml) 1 gm in 50 mls @ 100 mls/hr IV Q12HR [facility]; Protocol Stop: 10/07/19 23:59 Last Admin: 10/06/19 09:07 Dose: 100 mls/hr Documented by: Sodium Chloride (Nacl 0.9% 1000 Ml) 1,000 mls @ 150 mls/hr IV DIRECT STEVE Potassium Chloride/Dextrose/Sod Cl (D5w/0.45% Nacl/Kcl 20 Meq) 20 meq in 1,000 mls @ 125 mls/hr IV DIRECT STEVE Last Admin: 10/06/19 03:34 Dose: 125 mls/hr Documented by: Metoclopramide HCl (Reglan) 10 mg IV Q6H PRN PRN Reason: Nausea And Vomiting Nicotine (Habitrol) 14 mg TD QDAY [facility] Ondansetron HCl (Zofran) 4 mg IV Q4H PRN PRN Reason: Nausea And Vomiting Last Admin: 10/06/19 09:02 Dose: 4 mg Documented by: Sodium Chloride (Sodium Chloride Flush Syringe 10 Ml) 10 ml IV BID [facility] Last Admin: 10/06/19 12:04 Dose: Not Given Documented by: Sodium Chloride (Sodium Chloride Flush Syringe 10 Ml) 10 ml IV PRN PRN PRN Reason: LINE FLUSH Review of Systems Constitutional: fatigue, weakness, malaise, no weight loss, no chills Cardiovascular: syncope, lightheadedness, no chest pain, no orthopnea, no palpitations, no rapid/irregular heart beat Respiratory: no cough, no cough with sputum, no hemoptysis, no shortness of breath, no dyspnea on exertion Gastrointestinal: abdominal pain, nausea, vomiting, no hematemesis, no coffee ground emesis, no loss of appetite Neurological: syncope, no head injury, no transient paralysis, no paralysis, no weakness, no parathesias, no seizures, no ataxia Endocrine: polyphagia, polydipsia, polyuria, weight change, high blood sugars Physical Examination Vital signs: Vital Signs Temp Pulse Resp BP Pulse Ox 98.2 F 123 H 20 157/99 99 10/05/19 11:15 10/05/19 11:15 10/05/19 11:15 10/05/19 11:15 10/05/19 11:15 Reviewed General appearance: no acute distress, alert Eyes: non-icteric ENT: oropharynx dry Neck: supple, no lymphadenopathy, no JVD, other (short neck) Effort: mildly labored Ascultation: Bilateral: clear, diminished breath sounds Cardiovascular: regular rate and rhythm, other (S1,S2, no murmurs, gallops or rubs) Gastrointestinal: normoactive bowel sounds, soft, non-tender, non-distended, other (obese) Integumentary: normal Extremities: no cyanosis, no edema, pink and warm, pulses normal Musculoskeletal: no deformities normal mental status, non-focal exam, pupils equal and round, CN II-XII normal, motor strength normal and mood appropriate, anxious Results - Laboratory Findings CBC and BMP: 10/05/19 11:50 10/06/19 14:48 ABG ABG pH 7.311 pH Units (7.350-7.450) L 10/05/19 Unknown ABG pCO2 18.7 mm Hg 10/05/19 Unknown ABG pO2 94.3 mm Hg (80.0-90.0) H 10/05/19 Unknown ABG O2 Saturation 97.1 % (95.0-99.0) 10/05/19 Unknown PT/INR, D-dimer D-Dimer 445.93 ng/mlDDU (0-234) H 10/05/19 11:50 Abnormal lab findings: Abnormal Labs 10/05/19 10/05/19 10/05/19 11:40 11:45 11:50 WBC 12.1 H RBC 5.33 H Hgb 15.0 H Hct 45.0 H RDW 15.5 H Childress % (Auto) 9.4 H Childress # 1.1 H Seg Neutrophils % 75.9 H Seg Neutrophils # 9.2 H D-Dimer ABG pH ABG pO2 ABG HCO3 ABG Base Excess Oxyhemoglobin Sodium Potassium Chloride Carbon Dioxide Glucose POC Glucose > 500 H Magnesium Total Protein Urine WBC (Auto) 18.0 H 10/05/19 10/05/19 10/05/19 11:50 11:50 12:58 WBC RBC Hgb Hct RDW Childress % (Auto) Childress # Seg Neutrophils % Seg Neutrophils # D-Dimer 445.93 H ABG pH ABG pO2 ABG HCO3 ABG Base Excess Oxyhemoglobin Sodium 131 L Potassium Chloride 85.4 L Carbon Dioxide 8 L* Glucose 684 H* POC Glucose Magnesium 2.50 H Total Protein 9.0 H Urine WBC (Auto) 10/05/19 10/05/19 10/05/19 12:58 16:08 16:21 WBC RBC Hgb Hct RDW Childress % (Auto) Childress # Seg Neutrophils % Seg Neutrophils # D-Dimer ABG pH ABG pO2 ABG HCO3 ABG Base Excess Oxyhemoglobin Sodium 131 L Potassium 5.3 H D Chloride 88.1 L 93.1 L Carbon Dioxide 9 L* 8 L* Glucose 621 H* 374 H POC Glucose 329 H Magnesium Total Protein Urine WBC (Auto) 10/05/19 10/05/19 10/05/19 17:17 17:24 18:19 WBC RBC Hgb Hct RDW Childress % (Auto) Childress # Seg Neutrophils % Seg Neutrophils # D-Dimer ABG pH ABG pO2 ABG HCO3 ABG Base Excess Oxyhemoglobin Sodium Potassium 3.5 L Chloride 96.4 L Carbon Dioxide 10 L Glucose 272 H POC Glucose 265 H 211 H Magnesium Total Protein Urine WBC (Auto) 10/05/19 10/05/19 10/05/19 19:05 19:23 20:18 WBC RBC Hgb Hct RDW Childress % (Auto) Childress # Seg Neutrophils % Seg Neutrophils # D-Dimer ABG pH ABG pO2 ABG HCO3 ABG Base Excess Oxyhemoglobin Sodium Potassium 3.5 L Chloride 95.7 L Carbon Dioxide 11 L Glucose 265 H POC Glucose 176 H 257 H Magnesium Total Protein Urine WBC (Auto) 10/05/19 10/05/19 10/05/19 21:10 21:20 22:27 WBC RBC Hgb Hct RDW Childress % (Auto) Childress # Seg Neutrophils % Seg Neutrophils # D-Dimer ABG pH ABG pO2 ABG HCO3 ABG Base Excess Oxyhemoglobin Sodium Potassium Chloride 96.0 L Carbon Dioxide 10 L Glucose 300 H POC Glucose 268 H 283 H Magnesium Total Protein Urine WBC (Auto) 10/05/19 10/05/19 10/06/19 23:13 Unknown 00:22 WBC RBC Hgb Hct RDW Childress % (Auto) Childress # Seg Neutrophils % Seg Neutrophils # D-Dimer ABG pH 7.311 L ABG pO2 94.3 H ABG HCO3 9.2 L ABG Base Excess -14.3 L Oxyhemoglobin 94.7 L Sodium Potassium Chloride Carbon Dioxide Glucose POC Glucose 257 H 213 H Magnesium Total Protein Urine WBC (Auto) 10/06/19 10/06/19 10/06/19 01:15 02:34 03:17 WBC RBC Hgb Hct RDW Childress % (Auto) Childress # Seg Neutrophils % Seg Neutrophils # D-Dimer ABG pH ABG pO2 ABG HCO3 ABG Base Excess Oxyhemoglobin Sodium Potassium Chloride Carbon Dioxide Glucose POC Glucose 212 H 188 H 154 H Magnesium Total Protein Urine WBC (Auto) 10/06/19 10/06/19 10/06/19 04:20 04:50 05:23 WBC RBC Hgb Hct RDW Childress % (Auto) Childress # Seg Neutrophils % Seg Neutrophils # D-Dimer ABG pH ABG pO2 ABG HCO3 ABG Base Excess Oxyhemoglobin Sodium Potassium Chloride Carbon Dioxide 12 L Glucose 196 H POC Glucose 193 H 177 H Magnesium Total Protein Urine WBC (Auto) 10/06/19 10/06/19 10/06/19 05:58 06:29 07:25 WBC RBC Hgb Hct RDW Childress % (Auto) Childress # Seg Neutrophils % Seg Neutrophils # D-Dimer ABG pH ABG pO2 ABG HCO3 ABG Base Excess Oxyhemoglobin Sodium Potassium Chloride Carbon Dioxide Glucose POC Glucose 192 H 173 H 185 H Magnesium Total Protein Urine WBC (Auto) 10/06/19 10/06/19 08:28 10:19 WBC RBC Hgb Hct RDW Childress % (Auto) Childress # Seg Neutrophils % Seg Neutrophils # D-Dimer ABG pH ABG pO2 ABG HCO3 ABG Base Excess Oxyhemoglobin Sodium Potassium Chloride Carbon Dioxide Glucose POC Glucose 185 H 126 H Magnesium Total Protein Urine WBC (Auto) - Diagnostic Findings Chest x-ray: image reviewed (No acute pulmaonry infiltrates, no cardiomegally, hilar fullness) Assessment and Plan Diabetic ketoacidosis Metabolic acidosis Tobacco use disorder/Nicotine dependence Extreme obesity HIRAL/OHS Hypertension SIRS- on admission, no clear source of infection Elevated d-dimer , negative V/Q scan -IVF per protocol -Insulin infusion- titrate per protocol, hourly blood glucose checks -BMP q4 per protocol, replete electrolytes per protocol -Closely monitor urine output, renal function -ABG -VTE prophylaxis- elevated D-dimer, negative V/Q scan -Tobacco cessation counselling- states she quit smoking in 07/2019 -Life style modifications and weight loss -Out patient evaluation for sleep apnea -VTE prophylaxis -Currently on Ceftriaxone for presumed UTI, follow cultures if negative de- escalate/discontinue antibiotic therapy Discussed care plan with the patient and RN Answered all their questions CONDITION: CRITICAL PROGNOSIS: FAIR CODE STATUS: FULL CODE The high probability of a clinically significant, sudden or life threatening deterioration of the endocrine system required my full and direct attention, intervention and personal management. The aggregate critical care time was [35] minutes. This time is in addition to time spent performing reported procedures but includes the following: [x] Data Review and interpretation [x] Patient assessment and monitoring of vital signs [x] Documentation [x] Medication orders and management
[2019-10-06 15:13] LABS: BUN/Creatinine Ratio 9; Blood Urea Nitrogen 10 mg/dL (7-17); Calcium 9.1 mg/dL (8.4-10.2); Hemolysis Index 34
[2019-10-06 16:57] LABS: ABG Base Excess -5.8 mmol/L (-2.0-3.0); ABG HCO3 18.1 mmol/L (20.0-26.0); ABG Methemoglobin 0.5 % (0.0-1.5); ABG PCO2 31.2 mm Hg; ABG PH 7.381 pH Units (7.350-7.450); ABG PO2 75.8 mm Hg (80.0-90.0)
--- NOTE | 2019-10-06 20:53 | Event Note ---
Date: 10/06/[address] Holman @ [id number], full consult to follow.
[2019-10-07] MEDS: INSULIN REGULAR, HUMAN 100 UNITS in SODIUM CHLORIDE 0.9% 99 ML IV SCH (01:02)
[2019-10-07 01:08] LABS: BUN/Creatinine Ratio 8; Blood Urea Nitrogen 8 mg/dL (7-17); Calcium 8.6 mg/dL (8.4-10.2); Hemolysis Index 8
[2019-10-07] MEDS ORDERED: POTASSIUM CHLORIDE 40 MEQ in SODIUM CHLORIDE 0.45% 1000 ML 1,000 ML IV SCH (01:15)
[2019-10-07 06:27] LABS: BUN/Creatinine Ratio 8; Blood Urea Nitrogen 8 mg/dL (7-17); Calcium 8.6 mg/dL (8.4-10.2); Hemolysis Index 12
[2019-10-07] MEDS: INSULIN LISPRO 100 UNIT/ML SUB-Q SCH ×4 (08:22→22:13)
[2019-10-07] MEDS ORDERED: INSULIN NPH, HUMAN 100 UNIT/1 ML SUB-Q ONE (08:39)
--- NOTE | 2019-10-07 08:59 | Progress Note ---
Assessment and Plan Diabetic ketoacidosis Metabolic acidosis Tobacco use disorder/Nicotine dependence Extreme obesity HIRAL/OHS Hypertension SIRS- on admission, no clear source of infection Elevated d-dimer , negative V/Q scan -IVF per protocol - off Insulin infusion-on basal bolus insulin and weight based insulin therapy -Closely monitor urine output, renal function -VTE prophylaxis- elevated D-dimer, negative V/Q scan -Tobacco cessation counselling- states she quit smoking in 07/2019 -Life style modifications and weight loss -Out patient evaluation for sleep apnea -VTE prophylaxis -Currently on Ceftriaxone for presumed UTI, follow cultures if negative de- escalate/discontinue antibiotic therapy OK to transfer out of the ICU Discussed care plan with the patient and RN Answered all their questions Subjective Date of service: 10/07/19 Interval history: Patient is seen today for: Seen and examined at bedside; 24hour events reviewed; nursing and respiratory care staff consulted; no adverse overnight events reported to me; Objective Vital Signs - 12hr 10/06/19 10/06/19 10/06/19 21:01 22:00 23:00 Temperature Pulse Rate 82 82 Respiratory 19 23 23 Rate Blood Pressure 122/65 115/64 110/61 O2 Sat by Pulse 99 99 97 Oximetry 10/07/19 10/07/19 10/07/19 00:00 01:00 02:01 Temperature 98.3 F Pulse Rate 83 85 92 H Respiratory 21 16 22 Rate Blood Pressure 109/61 115/61 135/69 O2 Sat by Pulse 97 98 100 Oximetry 10/07/19 10/07/19 10/07/19 03:00 04:00 05:01 Temperature 98.1 F Pulse Rate 82 86 84 Respiratory 26 H Rate Blood Pressure 112/57 109/55 126/72 O2 Sat by Pulse 98 97 100 Oximetry 10/07/19 10/07/19 10/07/19 06:00 07:00 08:00 Temperature Pulse Rate 85 90 99 H Respiratory 27 H 29 H 22 Rate Blood Pressure 144/93 137/83 137/83 O2 Sat by Pulse 100 99 100 Oximetry Constitutional: no acute distress, alert Eyes: non-icteric ENT: oropharynx dry Neck: supple, no lymphadenopathy, no JVD, other (short neck) Effort: mildly labored Ascultation: Bilateral: clear, diminished breath sounds Cardiovascular: regular rate and rhythm, other (S1,S2, no murmurs, gallops or rubs) Gastrointestinal: normoactive bowel sounds, soft, non-tender, non-distended, other (obese) Integumentary: normal Extremities: no cyanosis, no edema, pink and warm, pulses normal Neurologic: normal mental status, non-focal exam, pupils equal and round, CN II- XII normal, motor strength normal and Psychiatric: mood appropriate, anxious CBC and BMP: 10/05/19 11:50 10/07/19 05:40 ABG, PT/INR, D-dimer: ABG ABG pH 7.381 pH Units (7.350-7.450) 10/06/19 16:42 ABG pCO2 31.2 mm Hg 10/06/19 16:42 ABG pO2 75.8 mm Hg (80.0-90.0) L 10/06/19 16:42 ABG O2 Saturation 96.0 % (95.0-99.0) 10/06/19 16:42 PT/INR, D-dimer D-Dimer 445.93 ng/mlDDU (0-234) H 10/05/19 11:50 Abnormal lab findings: Abnormal Labs 10/05/19 10/05/19 10/05/19 11:40 11:45 11:50 WBC 12.1 H RBC 5.33 H Hgb 15.0 H Hct 45.0 H RDW 15.5 H Perkins % (Auto) 9.4 H Perkins # 1.1 H Seg Neutrophils % 75.9 H Seg Neutrophils # 9.2 H D-Dimer ABG pH ABG pO2 ABG HCO3 ABG Base Excess Oxyhemoglobin Sodium Potassium Chloride Carbon Dioxide Glucose POC Glucose > 500 H Magnesium Total Protein Urine WBC (Auto) 18.0 H 10/05/19 10/05/19 10/05/19 11:50 11:50 12:58 WBC RBC Hgb Hct RDW Perkins % (Auto) Perkins # Seg Neutrophils % Seg Neutrophils # D-Dimer 445.93 H ABG pH ABG pO2 ABG HCO3 ABG Base Excess Oxyhemoglobin Sodium 131 L Potassium Chloride 85.4 L Carbon Dioxide 8 L* Glucose 684 H* POC Glucose Magnesium 2.50 H Total Protein 9.0 H Urine WBC (Auto) 10/05/19 10/05/19 10/05/19 12:58 16:08 16:21 WBC RBC Hgb Hct RDW Perkins % (Auto) Perkins # Seg Neutrophils % Seg Neutrophils # D-Dimer ABG pH ABG pO2 ABG HCO3 ABG Base Excess Oxyhemoglobin Sodium 131 L Potassium 5.3 H D Chloride 88.1 L 93.1 L Carbon Dioxide 9 L* 8 L* Glucose 621 H* 374 H POC Glucose 329 H Magnesium Total Protein Urine WBC (Auto) 10/05/19 10/05/19 10/05/19 17:17 17:24 18:19 WBC RBC Hgb Hct RDW Perkins % (Auto) Perkins # Seg Neutrophils % Seg Neutrophils # D-Dimer ABG pH ABG pO2 ABG HCO3 ABG Base Excess Oxyhemoglobin Sodium Potassium 3.5 L Chloride 96.4 L Carbon Dioxide 10 L Glucose 272 H POC Glucose 265 H 211 H Magnesium Total Protein Urine WBC (Auto) 10/05/19 10/05/19 10/05/19 19:05 19:23 20:18 WBC RBC Hgb Hct RDW Perkins % (Auto) Perkins # Seg Neutrophils % Seg Neutrophils # D-Dimer ABG pH ABG pO2 ABG HCO3 ABG Base Excess Oxyhemoglobin Sodium Potassium 3.5 L Chloride 95.7 L Carbon Dioxide 11 L Glucose 265 H POC Glucose 176 H 257 H Magnesium Total Protein Urine WBC (Auto) 10/05/19 10/05/19 10/05/19 21:10 21:20 22:27 WBC RBC Hgb Hct RDW Perkins % (Auto) Perkins # Seg Neutrophils % Seg Neutrophils # D-Dimer ABG pH ABG pO2 ABG HCO3 ABG Base Excess Oxyhemoglobin Sodium Potassium Chloride 96.0 L Carbon Dioxide 10 L Glucose 300 H POC Glucose 268 H 283 H Magnesium Total Protein Urine WBC (Auto) 10/05/19 10/05/19 10/06/19 23:13 Unknown 00:22 WBC RBC Hgb Hct RDW Perkins % (Auto) Perkins # Seg Neutrophils % Seg Neutrophils # D-Dimer ABG pH 7.311 L ABG pO2 94.3 H ABG HCO3 9.2 L ABG Base Excess -14.3 L Oxyhemoglobin 94.7 L Sodium Potassium Chloride Carbon Dioxide Glucose POC Glucose 257 H 213 H Magnesium Total Protein Urine WBC (Auto) 10/06/19 10/06/19 10/06/19 01:15 02:34 03:17 WBC RBC Hgb Hct RDW Perkins % (Auto) Perkins # Seg Neutrophils % Seg Neutrophils # D-Dimer ABG pH ABG pO2 ABG HCO3 ABG Base Excess Oxyhemoglobin Sodium Potassium Chloride Carbon Dioxide Glucose POC Glucose 212 H 188 H 154 H Magnesium Total Protein Urine WBC (Auto) 10/06/19 10/06/19 10/06/19 04:20 04:50 05:23 WBC RBC Hgb Hct RDW Perkins % (Auto) Perkins # Seg Neutrophils % Seg Neutrophils # D-Dimer ABG pH ABG pO2 ABG HCO3 ABG Base Excess Oxyhemoglobin Sodium Potassium Chloride Carbon Dioxide 12 L Glucose 196 H POC Glucose 193 H 177 H Magnesium Total Protein Urine WBC (Auto) 10/06/19 10/06/19 10/06/19 05:58 06:29 07:25 WBC RBC Hgb Hct RDW Perkins % (Auto) Perkins # Seg Neutrophils % Seg Neutrophils # D-Dimer ABG pH ABG pO2 ABG HCO3 ABG Base Excess Oxyhemoglobin Sodium Potassium Chloride Carbon Dioxide Glucose POC Glucose 192 H 173 H 185 H Magnesium Total Protein Urine WBC (Auto) 10/06/19 10/06/19 10/06/19 08:28 10:04 10:19 WBC RBC Hgb Hct RDW Perkins % (Auto) Perkins # Seg Neutrophils % Seg Neutrophils # D-Dimer ABG pH ABG pO2 ABG HCO3 ABG Base Excess Oxyhemoglobin Sodium Potassium Chloride Carbon Dioxide Glucose POC Glucose 185 H 141 H 126 H Magnesium Total Protein Urine WBC (Auto) 10/06/19 10/06/19 10/06/19 11:59 13:03 13:55 WBC RBC Hgb Hct RDW Perkins % (Auto) Perkins # Seg Neutrophils % Seg Neutrophils # D-Dimer ABG pH ABG pO2 ABG HCO3 ABG Base Excess Oxyhemoglobin Sodium Potassium Chloride Carbon Dioxide Glucose POC Glucose 133 H 172 H 181 H Magnesium Total Protein Urine WBC (Auto) 10/06/19 10/06/19 10/06/19 14:48 14:49 15:43 WBC RBC Hgb Hct RDW Perkins % (Auto) Perkins # Seg Neutrophils % Seg Neutrophils # D-Dimer ABG pH ABG pO2 ABG HCO3 ABG Base Excess Oxyhemoglobin Sodium Potassium Chloride Carbon Dioxide 15 L Glucose 180 H POC Glucose 200 H 172 H Magnesium Total Protein Urine WBC (Auto) 10/06/19 10/06/19 10/06/19 16:42 16:47 18:17 WBC RBC Hgb Hct RDW Perkins % (Auto) Perkins # Seg Neutrophils % Seg Neutrophils # D-Dimer ABG pH ABG pO2 75.8 L ABG HCO3 18.1 L ABG Base Excess -5.8 L Oxyhemoglobin 93.7 L Sodium Potassium Chloride Carbon Dioxide Glucose POC Glucose 133 H 139 H Magnesium Total Protein Urine WBC (Auto) 10/06/19 10/06/19 10/06/19 19:09 20:21 21:14 WBC RBC Hgb Hct RDW Perkins % (Auto) Perkins # Seg Neutrophils % Seg Neutrophils # D-Dimer ABG pH ABG pO2 ABG HCO3 ABG Base Excess Oxyhemoglobin Sodium Potassium Chloride Carbon Dioxide Glucose POC Glucose 169 H 160 H 182 H Magnesium Total Protein Urine WBC (Auto) 10/06/19 10/06/19 10/07/19 22:23 23:19 00:18 WBC RBC Hgb Hct RDW Perkins % (Auto) Perkins # Seg Neutrophils % Seg Neutrophils # D-Dimer ABG pH ABG pO2 ABG HCO3 ABG Base Excess Oxyhemoglobin Sodium Potassium Chloride Carbon Dioxide Glucose POC Glucose 161 H 165 H 130 H Magnesium Total Protein Urine WBC (Auto) 10/07/19 10/07/19 10/07/19 00:33 01:06 05:40 WBC RBC Hgb Hct RDW Perkins % (Auto) Perkins # Seg Neutrophils % Seg Neutrophils # D-Dimer ABG pH ABG pO2 ABG HCO3 ABG Base Excess Oxyhemoglobin Sodium Potassium 2.9 L* Chloride Carbon Dioxide 17 L 15 L Glucose 137 H 211 H POC Glucose 142 H Magnesium Total Protein Urine WBC (Auto) 10/07/19 07:55 WBC RBC Hgb Hct RDW Perkins % (Auto) Perkins # Seg Neutrophils % Seg Neutrophils # D-Dimer ABG pH ABG pO2 ABG HCO3 ABG Base Excess Oxyhemoglobin Sodium Potassium Chloride Carbon Dioxide Glucose POC Glucose 199 H Magnesium Total Protein Urine WBC (Auto)
[2019-10-07] MEDS: HEPARIN 5,000 UNIT/1 ML VIAL SUB-Q SCH ×2 (09:21→22:17)
[2019-10-07] MEDS: cefTRIAXone/NS 1 GM/50 ML 1 GM/50 ML BAG IV SCH (09:21)
[2019-10-07] MEDS: SODIUM CHLORIDE 0.45% 1000 ML 1,000 ML IV SCH (09:21)
[2019-10-07] MEDS: NICOTINE 14 MG/24 HR PATCH TD SCH (09:22)
--- NOTE | 2019-10-07 14:40 | Progress Note ---
Assessment and Plan Assessment and plan: 39-year-old woman who presents to the hospital after feeling sick for 4 days. Complained of multiple episodes of nausea vomiting and inability to tolerate p.o. She also complained of polyuria polyphagia and polydipsia. DKA now resolved Uncontrolled new onset DM, with persistent hyperglycemia optimize sq insulin hypokalemia; repleted Tobacco abuse/dependence Smoking cessation counseling performed for 10 minutes, nicotine patches when necessary Intractable nausea vomiting was due to dka, now resolved Morbid obesity Preventative health counseling performed for 17 minutes DUB; has been having constant menstrual bleeding for over a month. Obtain ultrasound and consult VENIPUNCTURIST, patient is not anemic. Elevated D-dimers; VQ scan negative Sirs. No suspicion of infection in this patient. Chest x-ray negative. U cx neg for UTI, uti ruled out DVT prophylaxis chemical Critical care time 35 minutes History Interval history: Review of systems Constitutional: No fevers, complaining of generalized weakness CVS: No chest pain, no orthopnea, no pedal edema GI: Complaining of nausea vomiting. Respiratory: , no wheezing, no coughing Hospitalist Physical - Physical exam Narrative exam: General.: Mild distress HEENT: Moist mucous membranes, extraocular muscles intact, no lymphadenopathy Neck: supple Cardiac: S1-S2 heard Lungs: clear to auscultation bilaterally Abdomen: soft , nontender, nondistended, bowel sounds positive Extremities: no edema clubbing or cyanosis Skin: no rash or lesions Neurologic: no gross focal deficits Psych: calm, and cooperative - Constitutional Vitals: Temp Pulse Resp BP Pulse Ox 98.1 F 98 H 16 147/85 99 10/07/19 12:08 10/07/19 12:08 10/07/19 12:08 10/07/19 12:08 10/07/19 12:08 General appearance: Present: mild distress Results - Labs CBC & Chem 7: 10/05/19 11:50 10/07/19 05:40 Labs: Laboratory Last Values WBC 12.1 K/mm3 (4.5-11.0) H 10/05/19 11:50 RBC 5.33 M/mm3 (3.65-5.03) H 10/05/19 11:50 Hgb 15.0 gm/dl (10.1-14.3) H 10/05/19 11:50 Hct 45.0 % (30.3-42.9) H 10/05/19 11:50 MCV 85 fl (79-97) 10/05/19 11:50 MCH 28 pg (28-32) 10/05/19 11:50 MCHC 33 % (30-34) 10/05/19 11:50 RDW 15.5 % (13.2-15.2) H 10/05/19 11:50 Plt Count 350 K/mm3 (140-440) 10/05/19 11:50 Lymph % (Auto) 13.6 % (13.4-35.0) 10/05/19 11:50 [place] % (Auto) 9.4 % (0.0-7.3) H 10/05/19 11:50 Eos % (Auto) 0.3 % (0.0-4.3) 10/05/19 11:50 Baso % (Auto) 0.8 % (0.0-1.8) 10/05/19 11:50 Lymph # 1.6 K/mm3 (1.2-5.4) 10/05/19 11:50 [place] # 1.1 K/mm3 (0.0-0.8) H 10/05/19 11:50 Eos # 0.0 K/mm3 (0.0-0.4) 10/05/19 11:50 Baso # 0.1 K/mm3 (0.0-0.1) 10/05/19 11:50 Seg Neutrophils % 75.9 % (40.0-70.0) H 10/05/19 11:50 Seg Neutrophils # 9.2 K/mm3 (1.8-7.7) H 10/05/19 11:50 D-Dimer 445.93 ng/mlDDU (0-234) H 10/05/19 11:50 ABG pH 7.381 pH Units (7.350-7.450) 10/06/19 16:42 ABG pCO2 31.2 mm Hg 10/06/19 16:42 ABG pO2 75.8 mm Hg (80.0-90.0) L 10/06/19 16:42 ABG HCO3 18.1 mmol/L (20.0-26.0) L 10/06/19 16:42 ABG O2 Saturation 96.0 % (95.0-99.0) 10/06/19 16:42 ABG O2 Content 18.3 (0.0-44) 10/06/19 16:42 ABG Base Excess -5.8 mmol/L (-2.0-3.0) L 10/06/19 16:42 ABG Hemoglobin 13.9 gm/dl (12.0-16.0) 10/06/19 16:42 ABG Carboxyhemoglobin 1.8 % (0.0-5.0) 10/06/19 16:42 ABG Methemoglobin 0.5 % (0.0-1.5) 10/06/19 16:42 Oxyhemoglobin 93.7 % (95.0-99.0) L 10/06/19 16:42 FiO2 21 % 10/06/19 16:42 Sodium 139 mmol/L (137-145) 10/07/19 05:40 Potassium 3.7 mmol/L (3.6-5.0) D 10/07/19 05:40 Chloride 100.4 mmol/L (98-107) 10/07/19 05:40 Carbon Dioxide 15 mmol/L (22-30) L 10/07/19 05:40 Anion Gap 27 mmol/L 10/07/19 05:40 BUN 8 mg/dL (7-17) 10/07/19 05:40 Creatinine 1.0 mg/dL (0.7-1.2) 10/07/19 05:40 Estimated GFR > 60 ml/min 10/07/19 05:40 BUN/Creatinine Ratio 8 % 10/07/19 05:40 Glucose 211 mg/dL (65-100) H 10/07/19 05:40 POC Glucose 313 (70-105) H 10/07/19 12:15 Calcium 8.6 mg/dL (8.4-10.2) 10/07/19 05:40 Phosphorus 3.30 mg/dL (2.5-4.5) 10/05/19 12:58 Magnesium 2.50 mg/dL (1.7-2.3) H 10/05/19 12:58 Total Bilirubin 0.60 mg/dL (0.1-1.2) 10/05/19 11:50 AST 14 units/L (5-40) 10/05/19 11:50 ALT 18 units/L (7-56) 10/05/19 11:50 Alkaline Phosphatase 116 units/L (35-129) 10/05/19 11:50 Troponin T < 0.010 ng/mL (0.00-0.029) 10/05/19 11:50 Total Protein 9.0 g/dL (6.3-8.2) H 10/05/19 11:50 Albumin 4.8 g/dL (3.9-5) 10/05/19 11:50 Albumin/Globulin Ratio 1.1 % 10/05/19 11:50 Urine Color Yellow (Yellow) 10/05/19 11:40 Urine Turbidity Slightly-cloudy (Clear) 10/05/19 11:40 Urine pH 5.0 (5.0-7.0) 10/05/19 11:40 Ur Specific Alfred 1.024 (1.003-1.030) 10/05/19 11:40 Urine Protein 100 mg/dl mg/dL (Negative) 10/05/19 11:40 Urine Glucose (UA) >=500 mg/dL (Negative) 10/05/19 11:40 Urine Ketones 80 mg/dL (Negative) 10/06/19 18:40 Urine Blood Lg (Negative) 10/05/19 11:40 Urine Nitrite Neg (Negative) 10/05/19 11:40 Urine Bilirubin Neg (Negative) 10/05/19 11:40 Urine Urobilinogen < 2.0 mg/dL (<2.0) 10/05/19 11:40 Ur Leukocyte Esterase Sm (Negative) 10/05/19 11:40 Urine WBC (Auto) 18.0 /HPF (0.0-6.0) H 10/05/19 11:40 Urine RBC (Auto) 13.0 /HPF (0.0-6.0) 10/05/19 11:40 U Epithel Cells (Auto) 5.0 /HPF (0-13.0) 10/05/19 11:40 Urine Mucus Few /HPF 10/05/19 11:40 Urine HCG, Qual Negative (Negative) 10/05/19 11:40 Active Medications - Current Medications Current Medications: Generic Name Dose Route Start Last Admin Trade Name Freq PRN Reason Stop Dose Admin Acetaminophen 650 mg 10/06/19 10:02 Tylenol PO Q4H PRN Pain, Mild (1-3) Albuterol 2.5 mg 10/05/19 13:45 Proventil IH Q3HRT PRN Shortness Of Breath Dextrose 0 ml 10/05/19 12:51 D50w (25gm) Syringe IV Q30MIN PRN Hypoglycemia Protocol Heparin Sodium (Porcine) 5,000 unit 10/05/19 22:00 10/07/19 09:21 Heparin SUB-Q 5,000 unit Q12HR STEVE Administration Ceftriaxone Sodium 1 gm in 50 mls @ 100 mls/hr 10/05/19 22:00 10/07/19 09:21 Rocephin/Ns 1 Gm/50 Ml IV 10/07/19 23:59 100 mls/hr Q12HR STEVE Administration Protocol Sodium Chloride 1,000 mls @ 125 mls/hr 10/07/19 09:00 10/07/19 09:21 Nacl 0.45% 1000 Ml IV 125 mls/hr DIRECT STEVE Administration Insulin Glargine 20 units 10/07/19 22:00 Lantus SUB-Q QHS STEVE Insulin Human Lispro 0 unit 10/07/19 07:30 10/07/19 13:14 Humalog SUB-Q 8 unit ACHS STEVE Administration Protocol Metformin HCl 500 mg 10/07/19 15:00 Glucophage Xr PO QDDIAB STEVE Metoclopramide HCl 10 mg 10/06/19 10:06 Reglan IV Q6H PRN Nausea And Vomiting Nicotine 14 mg 10/07/19 10:00 10/07/19 09:22 Habitrol TD Not Given QDAY STEVE Ondansetron HCl 4 mg 10/06/19 08:46 10/06/19 09:02 Zofran IV 4 mg Q4H PRN Administration Nausea And Vomiting Sodium Chloride 10 ml 10/05/19 22:00 10/07/19 10:02 Sodium Chloride Flush Syringe 10 Ml IV 10 ml BID STEVE Administration Sodium Chloride 10 ml 10/05/19 13:45 Sodium Chloride Flush Syringe 10 Ml IV PRN PRN LINE FLUSH Nutrition/Malnutrition Assess - Dietary Evaluation Nutrition/Malnutrition Findings: Nutrition Notes Start: 10/06/19 10:30 Freq: Status: Active Protocol: Document 10/06/19 10:30 CT (Rec: 10/06/19 10:49 CT [id number]) Co-Sign 02/08/20 10:30 LP Nutrition Notes Need for Assessment generated from: mail processor Initial or Follow up Assessment Current Diagnosis Diabetes,Hypertension Other Pertinent Diagnosis DKA, SARS, poly-dipsia,uria, phagia, N/V, Metabolic Acidosis Current Diet NPO Labs/Tests Glu 196 Pertinent Medications Insulin 1/2D5NS w/ KCl 125 ml/hr NS 150 ml/hr Height 5 ft 4 in Weight 138.6 kg [place] Body Weight (kg) 54.54 BMI 52.4 Weight change and time frame 25 lbs intentional wt loss Weight Status Morbidly Obese Subjective/Other Information RN screen for new onset T2DM. Pt stated that she is unsure of UBW and that she has intentionally lost 25 lbs while dieting and exercising. Pt stated she was doing the keto diet then low CHO, high PRO diet. Gave pt education on how keto/low CHO can be dangerous for DM. 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 Pt was experiencing nausea at time of visit, RN gave anti- emetic medication. Pt stated she did not have an appetite [employer], but has one now. Pt has not had previous diet education on DM d/t being diagnosed during this hospital visit. Pt was given DM education handout to read over when she is not nauseous. Burn Absent Trauma Absent GI Symptoms Nausea Current % PO Negligible Minimum of two criteria No Energy Intake (severe) < or equal to 50% Estimated Energy Requirement > or equal to 5 days #2 Nutrition Diagnosis Inadequate energy intake Etiology DKA As Evidenced by Signs and Symptoms <50% EER over 5 days, NPO now, nausea #1 Nutrition Diagnosis Food and nutrition-related knowledge deficit Etiology no prior knowledge on DM diet As Evidenced by Signs and Symptoms recent diagnosis of DM, DKA Is patient on ventilator? No Is Patient Ambulatory and/or Out of Bed Yes REE-([employer]ker-St. Jeor-ambulatory/OOB) [ 1903.300 NUTR.[id number]] Kcal/Kg value to use for calculation 12 Approximate Energy Requirements Using 1663 kcal/Kg Calculation Used for Recommendations Kcal/kg Additional Notes Protein needs: 77-97 g/day (0. 8-1 g/kg/day AdjBW 96.57 kg) Fluid needs: 1 ml/kcal Nutrition Intervention Change Diet Order: Diet advancement to Cardiac/ Consistent CHO Teaching Recipient Patient Learning Readiness Fair Teaching Methods Handout Response to Teaching Reinforcement needed Education Handouts Provided T2DM Nutrition Therapy CHO counting for DM Barriers to Learning Physical RD phone number provided Yes Patient aware of follow up options Yes Goal #1 Advance diet when medically feasible Goal #2 Meet >75% of energy and protein needs Goal #3 Understanding of DM diet education Anticipated Discharge Needs: Cardiac/Consistent CHO Follow-Up By: 10/08/19 Additional Comments Follow up for diet advancement and diet education
--- NOTE | 2019-10-07 15:04 | Consultation ---
History of Present Illness Consult date: 10/06/19 (pt seen at 1500pm-note is late entry) Reason for consult: other (DUB) History of present illness: 1-year-old woman who presents to the hospital after feeling sick for 4 days. Complained of multiple episodes of nausea vomiting and inability to tolerate p.o. She also complained of polyuria polyphagia and polydipsia. She was seen while still in the ccu being treated for DKA which has since resolved. DUMP GRADER consulted due to pt c/o having bleeding x 1 month that has varied in intensity. She denies having heavy bleeding or passing of clots during this time. Bleeding started on 09/13/2019 and was spotting that progressed to a normal period and currently she is only seeing spotting of light pink with wiping. Last pap was in February of 2019 with supervisor electronic testing in [place] as per pt and was normal. She denies any previous episodes of bleeding, no abnormal paps or previous STDs. She is not currently taking any hormones or has any contraception at this time. No recent sonograms. Past History Past Medical History: other (see H&P) Past Surgical History: other (see H&P) DUMP GRADER History: denies: abnormal PAP smear, chlamydia, gonorrhea, hepatitis B, hepatitis C, herpes Family/Genetic History: other (see H&P) Social history: no significant social history, single, smoking Medications and Allergies Allergies Allergy/AdvReac Type Severity Reaction Status Date / Time raw onions Allergy Swelling Uncoded 10/06/19 00:35 Home Medications Medication Instructions Recorded Confirmed Last Taken Type amLODIPine [Norvasc] 10 mg PO DAILY #30 tab 09/28/19 10/06/19 10/05/19 09:00 Rx hydroCHLOROthiazide [Hctz] 12.5 mg PO QDAY #30 capsule 09/28/19 10/06/19 10/05/19 09:00 Rx metFORMIN [Glucophage] 500 mg PO QDAY #30 tablet 09/28/19 10/06/19 10/04/19 09:00 Rx Active Meds: Active Medications Acetaminophen (Tylenol) 650 mg PO Q4H PRN PRN Reason: Pain, Mild (1-3) Albuterol (Proventil) 2.5 mg IH Q3HRT PRN PRN Reason: Shortness Of Breath Dextrose (D50w (25gm) Syringe) 0 ml IV Q30MIN PRN; Protocol PRN Reason: Hypoglycemia Heparin Sodium (Porcine) (Heparin) 5,000 unit SUB-Q Q12HR [facility] Last Admin: 10/07/19 09:21 Dose: 5,000 unit Documented by: Sodium Chloride (Nacl 0.45% 1000 Ml) 1,000 mls @ 125 mls/hr IV DIRECT STEVE Last Admin: 10/07/19 09:21 Dose: 125 mls/hr Documented by: Insulin Glargine (Lantus) 20 units SUB-Q QHS STEVE Insulin Human Lispro (Humalog) 0 unit SUB-Q ACHS STEVE; Protocol Last Admin: 10/07/19 13:14 Dose: 8 unit Documented by: Metformin HCl (Glucophage Xr) 500 mg PO QDDIAB [facility] Metoclopramide HCl (Reglan) 10 mg IV Q6H PRN PRN Reason: Nausea And Vomiting Nicotine (Habitrol) 14 mg TD QDAY [facility] Last Admin: 10/07/19 09:22 Dose: Not Given Documented by: Ondansetron HCl (Zofran) 4 mg IV Q4H PRN PRN Reason: Nausea And Vomiting Last Admin: 10/06/19 09:02 Dose: 4 mg Documented by: Sodium Chloride (Sodium Chloride Flush Syringe 10 Ml) 10 ml IV BID [facility] Last Admin: 10/07/19 10:02 Dose: 10 ml Documented by: Sodium Chloride (Sodium Chloride Flush Syringe 10 Ml) 10 ml IV PRN PRN PRN Reason: LINE FLUSH Review of Systems All systems: negative - Vital Signs Vital signs: Vital Signs Temp Pulse Resp BP Pulse Ox 98.2 F 123 H 20 157/99 99 10/05/19 11:15 10/05/19 11:15 10/05/19 11:15 10/05/19 11:15 10/05/19 11:15 Temp Pulse Resp BP Pulse Ox 98.1 F 98 H 16 147/85 99 10/07/19 12:08 10/07/19 12:08 10/07/19 12:08 10/07/19 12:08 10/07/19 12:08 - Physical Exam Cardiovascular: Normal S1, Normal S2 Lungs: Positive: Normal air movement Abdomen: Positive: normal appearance, soft. Negative: distention, tenderness, guarding Genitourinary (Female): Positive: other (deferred as pt not having heavy bleeding at this time) Extremities: Positive: normal. Negative: tenderness Deep Tendon Reflex Grade: Normal +2 Results Result Diagrams: 10/05/19 11:50 10/07/19 05:40 Abnormal lab results 10/06/19 10/06/19 10/06/19 Range/Units 14:48 15:43 16:42 ABG pO2 75.8 L (80.0-90.0) mm Hg ABG HCO3 18.1 L (20.0-26.0) mmol/L ABG Base Excess -5.8 L (-2.0-3.0) mmol/L Oxyhemoglobin 93.7 L (95.0-99.0) % Potassium (3.6-5.0) mmol/L Carbon Dioxide 15 L (22-30) mmol/L Glucose 180 H (65-100) mg/dL POC Glucose 172 H (70-105) 10/06/19 10/06/19 10/06/19 Range/Units 16:47 18:17 19:09 ABG pO2 (80.0-90.0) mm Hg ABG HCO3 (20.0-26.0) mmol/L ABG Base Excess (-2.0-3.0) mmol/L Oxyhemoglobin (95.0-99.0) % Potassium (3.6-5.0) mmol/L Carbon Dioxide (22-30) mmol/L Glucose (65-100) mg/dL POC Glucose 133 H 139 H 169 H (70-105) 10/06/19 10/06/19 10/06/19 Range/Units 20:21 21:14 22:23 ABG pO2 (80.0-90.0) mm Hg ABG HCO3 (20.0-26.0) mmol/L ABG Base Excess (-2.0-3.0) mmol/L Oxyhemoglobin (95.0-99.0) % Potassium (3.6-5.0) mmol/L Carbon Dioxide (22-30) mmol/L Glucose (65-100) mg/dL POC Glucose 160 H 182 H 161 H (70-105) 10/06/19 10/07/19 10/07/19 Range/Units 23:19 00:18 00:33 ABG pO2 (80.0-90.0) mm Hg ABG HCO3 (20.0-26.0) mmol/L ABG Base Excess (-2.0-3.0) mmol/L Oxyhemoglobin (95.0-99.0) % Potassium 2.9 L* (3.6-5.0) mmol/L Carbon Dioxide 17 L (22-30) mmol/L Glucose 137 H (65-100) mg/dL POC Glucose 165 H 130 H (70-105) 10/07/19 10/07/19 10/07/19 Range/Units 01:06 05:40 07:55 ABG pO2 (80.0-90.0) mm Hg ABG HCO3 (20.0-26.0) mmol/L ABG Base Excess (-2.0-3.0) mmol/L Oxyhemoglobin (95.0-99.0) % Potassium (3.6-5.0) mmol/L Carbon Dioxide 15 L (22-30) mmol/L Glucose 211 H (65-100) mg/dL POC Glucose 142 H 199 H (70-105) 10/07/19 Range/Units 12:15 ABG pO2 (80.0-90.0) mm Hg ABG HCO3 (20.0-26.0) mmol/L ABG Base Excess (-2.0-3.0) mmol/L Oxyhemoglobin (95.0-99.0) % Potassium (3.6-5.0) mmol/L Carbon Dioxide (22-30) mmol/L Glucose (65-100) mg/dL POC Glucose 313 H (70-105) All other labs normal. Assessment and Plan - Patient Problems (1) DUB (dysfunctional uterine bleeding) Current Visit: Yes Status: Acute Plan to address problem: -I d/w observation vs provera to stop the spotting she is having at this time. She desires to try the provera for which she will take 10mg po x 10 days. -F/u for pap and hpv and full STD testing -f/u for SIS and Embx. I d/w that [facility] plan of care would be developed after the above stated testing done in the office -[facility] [phone] -pt expressed understanding and agrees with plan of care -delayed entry due to no computer acess. pt was seen 10/06/2019 @ 1500pm -will sign off at this time. Please re-consult as needed (2) DKA (diabetic ketoacidoses) Current Visit: Yes Status: Acute (3) Morbid obesity Current Visit: Yes Status: Acute (4) Nicotine dependence Current Visit: Yes Status: Acute Qualifiers: Nicotine product type: cigarettes Substance use status: in withdrawal Qualified Code(s): F17.213 - Nicotine dependence, cigarettes, with withdrawal (5) Obesity hypoventilation syndrome Current Visit: Yes Status: Acute (6) Hyperglycemia Current Visit: No Status: Acute (7) Hypertension Current Visit: No Status: Acute
[2019-10-07] MEDS: ONDANSETRON 4 MG/2 ML INJ IV PRN (17:08)
[2019-10-07] MEDS: metFORMIN XR 500MG TAB PO SCH (17:08)
[2019-10-07] MEDS ORDERED: INSULIN GLARGINE 100 UNITS/ML SUB-Q SCH (22:00)
[2019-10-08] MEDS: hydrALAZINE 20 MG/1 ML INJ IV PRN (02:05)
[2019-10-08] MEDS ORDERED: INSULIN NPH, HUMAN 100 UNIT/1 ML SUB-Q ONE ×2 (06:00→22:00)
[2019-10-08] MEDS: INSULIN LISPRO 100 UNIT/ML SUB-Q SCH ×6 (07:30→22:23)
[2019-10-08 07:48] LABS: BUN/Creatinine Ratio 4; Blood Urea Nitrogen 4 mg/dL (7-17); Calcium 8.6 mg/dL (8.4-10.2); Chol/HDL Ratio 5.04 %; HDL Cholesterol 42 mg/dL (40-59); Hemolysis Index 48; LDL Cholesterol,Direct 151 mg/dL (50-130)
[2019-10-08] MEDS: metFORMIN XR 500MG TAB PO SCH (08:00)
[2019-10-08] MEDS: NICOTINE 14 MG/24 HR PATCH TD SCH (09:55)
[2019-10-08] MEDS: medroxyPROGESTERone ACETATE 5 MG TAB PO SCH (09:56)
[2019-10-08] MEDS: HEPARIN 5,000 UNIT/1 ML VIAL SUB-Q SCH ×2 (09:57→22:24)
[2019-10-08] MEDS ORDERED: INSULIN NPH, HUMAN 100 UNIT/1 ML SUB-Q STA (12:14)
--- NOTE | 2019-10-08 13:48 | Progress Note ---
Assessment and Plan Pt alert and awake. No complaints of chest pain, shortness of breath, or cough. She is resting comfortably on room air with an O2 saturation of 100%. She is afebrile and has a mild leukocytosis. She has a history of smoking 5-6 cigarettes a day for 15 years, counseled to stop smoking. - Patient Problems (1) DKA (diabetic ketoacidoses) Current Visit: Yes Status: Acute Plan to address problem: Still has an anion gap. Management as per primary care. (2) Metabolic acidosis Current Visit: Yes Status: Acute Plan to address problem: Likely due to ketoacidosis. (3) Morbid obesity Current Visit: Yes Status: Acute Plan to address problem: Recommend to loose weight (4) Nicotine dependence Current Visit: Yes Status: Acute Qualifiers: Nicotine product type: cigarettes Substance use status: in withdrawal Qualified Code(s): F17.213 - Nicotine dependence, cigarettes, with withdrawal Plan to address problem: Counseled to stop smoking. (5) Hypertension Current Visit: No Status: Acute Plan to address problem: Management as per primary care. Subjective Date of service: 10/08/19 Interval history: Pt alert and awake. No complaints of chest pain, shortness of breath, or cough. She is resting comfortably on room air with an O2 saturation of 100%. She is afebrile and has a mild leukocytosis. She has a history of smoking 5-6 cigarettes a day for 15 years, counseled to stop smoking. Objective Vital Signs - 12hr 10/08/19 10/08/19 02:05 05:56 Temperature 98.5 F Pulse Rate 95 H 94 H Respiratory 20 Rate Blood Pressure 175/103 149/88 O2 Sat by Pulse 100 Oximetry Constitutional: no acute distress, alert Eyes: non-icteric ENT: oropharynx dry Neck: supple, no lymphadenopathy, no JVD, other (short neck) Effort: normal Ascultation: Bilateral: diminished breath sounds Cardiovascular: regular rate and rhythm, other (S1,S2, no murmurs, gallops or r ubs) Gastrointestinal: normoactive bowel sounds, soft, non-tender, non-distended, other (obese) Integumentary: normal Extremities: no cyanosis, no edema, pink and warm, pulses normal Neurologic: normal mental status, non-focal exam, pupils equal and round, CN II- XII normal, motor strength normal and Psychiatric: mood appropriate, anxious CBC and BMP: 10/05/19 11:50 10/08/19 07:06 ABG, PT/INR, D-dimer: ABG ABG pH 7.381 pH Units (7.350-7.450) 10/06/19 16:42 ABG pCO2 31.2 mm Hg 10/06/19 16:42 ABG pO2 75.8 mm Hg (80.0-90.0) L 10/06/19 16:42 ABG O2 Saturation 96.0 % (95.0-99.0) 10/06/19 16:42 PT/INR, D-dimer D-Dimer 445.93 ng/mlDDU (0-234) H 10/05/19 11:50 Abnormal lab findings: Abnormal Labs 10/05/19 10/05/19 10/05/19 11:40 11:45 11:50 WBC 12.1 H RBC 5.33 H Hgb 15.0 H Hct 45.0 H RDW 15.5 H [place] % (Auto) 9.4 H [place] # 1.1 H Seg Neutrophils % 75.9 H Seg Neutrophils # 9.2 H D-Dimer ABG pH ABG pO2 ABG HCO3 ABG Base Excess Oxyhemoglobin Sodium Potassium Chloride Carbon Dioxide BUN Glucose POC Glucose > 500 H Hemoglobin A1c Magnesium Total Protein Cholesterol LDL Cholesterol Direct Urine WBC (Auto) 18.0 H 10/05/19 10/05/19 10/05/19 11:50 11:50 12:58 WBC RBC Hgb Hct RDW [place] % (Auto) [place] # Seg Neutrophils % Seg Neutrophils # D-Dimer 445.93 H ABG pH ABG pO2 ABG HCO3 ABG Base Excess Oxyhemoglobin Sodium 131 L Potassium Chloride 85.4 L Carbon Dioxide 8 L* BUN Glucose 684 H* POC Glucose Hemoglobin A1c Magnesium 2.50 H Total Protein 9.0 H Cholesterol LDL Cholesterol Direct Urine WBC (Auto) 10/05/19 10/05/19 10/05/19 12:58 16:08 16:21 WBC RBC Hgb Hct RDW [place] % (Auto) [place] # Seg Neutrophils % Seg Neutrophils # D-Dimer ABG pH ABG pO2 ABG HCO3 ABG Base Excess Oxyhemoglobin Sodium 131 L Potassium 5.3 H D Chloride 88.1 L 93.1 L Carbon Dioxide 9 L* 8 L* BUN Glucose 621 H* 374 H POC Glucose 329 H Hemoglobin A1c Magnesium Total Protein Cholesterol LDL Cholesterol Direct Urine WBC (Auto) 10/05/19 10/05/19 10/05/19 17:17 17:24 18:19 WBC RBC Hgb Hct RDW [place] % (Auto) [place] # Seg Neutrophils % Seg Neutrophils # D-Dimer ABG pH ABG pO2 ABG HCO3 ABG Base Excess Oxyhemoglobin Sodium Potassium 3.5 L Chloride 96.4 L Carbon Dioxide 10 L BUN Glucose 272 H POC Glucose 265 H 211 H Hemoglobin A1c Magnesium Total Protein Cholesterol LDL Cholesterol Direct Urine WBC (Auto) 10/05/19 10/05/19 10/05/19 19:05 19:23 20:18 WBC RBC Hgb Hct RDW [place] % (Auto) [place] # Seg Neutrophils % Seg Neutrophils # D-Dimer ABG pH ABG pO2 ABG HCO3 ABG Base Excess Oxyhemoglobin Sodium Potassium 3.5 L Chloride 95.7 L Carbon Dioxide 11 L BUN Glucose 265 H POC Glucose 176 H 257 H Hemoglobin A1c Magnesium Total Protein Cholesterol LDL Cholesterol Direct Urine WBC (Auto) 10/05/19 10/05/19 10/05/19 21:10 21:20 22:27 WBC RBC Hgb Hct RDW [place] % (Auto) [place] # Seg Neutrophils % Seg Neutrophils # D-Dimer ABG pH ABG pO2 ABG HCO3 ABG Base Excess Oxyhemoglobin Sodium Potassium Chloride 96.0 L Carbon Dioxide 10 L BUN Glucose 300 H POC Glucose 268 H 283 H Hemoglobin A1c Magnesium Total Protein Cholesterol LDL Cholesterol Direct Urine WBC (Auto) 10/05/19 10/05/19 10/06/19 23:13 Unknown 00:22 WBC RBC Hgb Hct RDW [place] % (Auto) [place] # Seg Neutrophils % Seg Neutrophils # D-Dimer ABG pH 7.311 L ABG pO2 94.3 H ABG HCO3 9.2 L ABG Base Excess -14.3 L Oxyhemoglobin 94.7 L Sodium Potassium Chloride Carbon Dioxide BUN Glucose POC Glucose 257 H 213 H Hemoglobin A1c Magnesium Total Protein Cholesterol LDL Cholesterol Direct Urine WBC (Auto) 10/06/19 10/06/19 10/06/19 01:15 02:34 03:17 WBC RBC Hgb Hct RDW [place] % (Auto) [place] # Seg Neutrophils % Seg Neutrophils # D-Dimer ABG pH ABG pO2 ABG HCO3 ABG Base Excess Oxyhemoglobin Sodium Potassium Chloride Carbon Dioxide BUN Glucose POC Glucose 212 H 188 H 154 H Hemoglobin A1c Magnesium Total Protein Cholesterol LDL Cholesterol Direct Urine WBC (Auto) 10/06/19 10/06/19 10/06/19 04:20 04:50 05:23 WBC RBC Hgb Hct RDW [place] % (Auto) [place] # Seg Neutrophils % Seg Neutrophils # D-Dimer ABG pH ABG pO2 ABG HCO3 ABG Base Excess Oxyhemoglobin Sodium Potassium Chloride Carbon Dioxide 12 L BUN Glucose 196 H POC Glucose 193 H 177 H Hemoglobin A1c Magnesium Total Protein Cholesterol LDL Cholesterol Direct Urine WBC (Auto) 10/06/19 10/06/19 10/06/19 05:58 06:29 07:25 WBC RBC Hgb Hct RDW [place] % (Auto) [place] # Seg Neutrophils % Seg Neutrophils # D-Dimer ABG pH ABG pO2 ABG HCO3 ABG Base Excess Oxyhemoglobin Sodium Potassium Chloride Carbon Dioxide BUN Glucose POC Glucose 192 H 173 H 185 H Hemoglobin A1c Magnesium Total Protein Cholesterol LDL Cholesterol Direct Urine WBC (Auto) 10/06/19 10/06/19 10/06/19 08:28 10:04 10:19 WBC RBC Hgb Hct RDW [place] % (Auto) [place] # Seg Neutrophils % Seg Neutrophils # D-Dimer ABG pH ABG pO2 ABG HCO3 ABG Base Excess Oxyhemoglobin Sodium Potassium Chloride Carbon Dioxide BUN Glucose POC Glucose 185 H 141 H 126 H Hemoglobin A1c Magnesium Total Protein Cholesterol LDL Cholesterol Direct Urine WBC (Auto) 10/06/19 10/06/19 10/06/19 11:59 13:03 13:55 WBC RBC Hgb Hct RDW [place] % (Auto) [place] # Seg Neutrophils % Seg Neutrophils # D-Dimer ABG pH ABG pO2 ABG HCO3 ABG Base Excess Oxyhemoglobin Sodium Potassium Chloride Carbon Dioxide BUN Glucose POC Glucose 133 H 172 H 181 H Hemoglobin A1c Magnesium Total Protein Cholesterol LDL Cholesterol Direct Urine WBC (Auto) 10/06/19 10/06/19 10/06/19 14:48 14:49 15:43 WBC RBC Hgb Hct RDW [place] % (Auto) [place] # Seg Neutrophils % Seg Neutrophils # D-Dimer ABG pH ABG pO2 ABG HCO3 ABG Base Excess Oxyhemoglobin Sodium Potassium Chloride Carbon Dioxide 15 L BUN Glucose 180 H POC Glucose 200 H 172 H Hemoglobin A1c Magnesium Total Protein Cholesterol LDL Cholesterol Direct Urine WBC (Auto) 10/06/19 10/06/19 10/06/19 16:42 16:47 18:17 WBC RBC Hgb Hct RDW [place] % (Auto) [place] # Seg Neutrophils % Seg Neutrophils # D-Dimer ABG pH ABG pO2 75.8 L ABG HCO3 18.1 L ABG Base Excess -5.8 L Oxyhemoglobin 93.7 L Sodium Potassium Chloride Carbon Dioxide BUN Glucose POC Glucose 133 H 139 H Hemoglobin A1c Magnesium Total Protein Cholesterol LDL Cholesterol Direct Urine WBC (Auto) 10/06/19 10/06/19 10/06/19 19:09 20:21 21:14 WBC RBC Hgb Hct RDW [place] % (Auto) [place] # Seg Neutrophils % Seg Neutrophils # D-Dimer ABG pH ABG pO2 ABG HCO3 ABG Base Excess Oxyhemoglobin Sodium Potassium Chloride Carbon Dioxide BUN Glucose POC Glucose 169 H 160 H 182 H Hemoglobin A1c Magnesium Total Protein Cholesterol LDL Cholesterol Direct Urine WBC (Auto) 10/06/19 10/06/19 10/07/19 22:23 23:19 00:18 WBC RBC Hgb Hct RDW [place] % (Auto) [place] # Seg Neutrophils % Seg Neutrophils # D-Dimer ABG pH ABG pO2 ABG HCO3 ABG Base Excess Oxyhemoglobin Sodium Potassium Chloride Carbon Dioxide BUN Glucose POC Glucose 161 H 165 H 130 H Hemoglobin A1c Magnesium Total Protein Cholesterol LDL Cholesterol Direct Urine WBC (Auto) 10/07/19 10/07/19 10/07/19 00:33 01:06 05:40 WBC RBC Hgb Hct RDW [place] % (Auto) [place] # Seg Neutrophils % Seg Neutrophils # D-Dimer ABG pH ABG pO2 ABG HCO3 ABG Base Excess Oxyhemoglobin Sodium Potassium 2.9 L* Chloride Carbon Dioxide 17 L 15 L BUN Glucose 137 H 211 H POC Glucose 142 H Hemoglobin A1c Magnesium Total Protein Cholesterol LDL Cholesterol Direct Urine WBC (Auto) 10/07/19 10/07/19 10/07/19 07:55 12:15 16:41 WBC RBC Hgb Hct RDW [place] % (Auto) [place] # Seg Neutrophils % Seg Neutrophils # D-Dimer ABG pH ABG pO2 ABG HCO3 ABG Base Excess Oxyhemoglobin Sodium Potassium Chloride Carbon Dioxide BUN Glucose POC Glucose 199 H 313 H 279 H Hemoglobin A1c Magnesium Total Protein Cholesterol LDL Cholesterol Direct Urine WBC (Auto) 10/07/19 10/08/19 10/08/19 22:19 07:06 07:06 WBC RBC Hgb Hct RDW [place] % (Auto) [place] # Seg Neutrophils % Seg Neutrophils # D-Dimer ABG pH ABG pO2 ABG HCO3 ABG Base Excess Oxyhemoglobin Sodium Potassium Chloride Carbon Dioxide 14 L BUN 4 L Glucose 246 H POC Glucose 302 H Hemoglobin A1c 13.3 H Magnesium Total Protein Cholesterol 212 H LDL Cholesterol Direct 151 H Urine WBC (Auto) 10/08/19 10/08/19 08:07 11:35 WBC RBC Hgb Hct RDW [place] % (Auto) [place] # Seg Neutrophils % Seg Neutrophils # D-Dimer ABG pH ABG pO2 ABG HCO3 ABG Base Excess Oxyhemoglobin Sodium Potassium Chloride Carbon Dioxide BUN Glucose POC Glucose 229 H 236 H Hemoglobin A1c Magnesium Total Protein Cholesterol LDL Cholesterol Direct Urine WBC (Auto) Chest x-ray: report reviewed (Reported no acute findings.), image reviewed Additional Studies: Perfusion lung scan on 10/05/19 reported low probability of pulmonary embolism.
--- NOTE | 2019-10-08 14:12 | Ultrasound Report ---
ULTRASOUND PELVIC COMPLETE ULTRASOUND TRANSVAGINAL HISTORY: Dysfunctional uterine bleeding TECHNIQUE: Transabdominal and transvaginal ultrasound with color Doppler imaging FINDINGS: The uterus is anteverted and measures 7.6 x 3.4 x 3.8 cm. No uterine fibroid disease is appreciated. The endometrium is slightly thickened measuring 20 mm. There is a small cyst in the anterior endometr ium measuring up to 6 mm in diameter. No obvious pole or yolk sac within this structure. The right ovary measures 1.8 x 1.3 x 1.9 cm. The left ovary measures 2.4 x 1.0 x 1.9 cm. No adnexal c yst or mass. No pelvic fluid collection. IMPRESSION: The endometrium is slightly thickened measuring 20 mm. Consider endometrial hyperplasia. A 6 mm cyst is identified in the endometrium. This does not appear to represent an early intrauterine although it should be considered. Please correlate with the patient's laboratory values an d clinical history. Normal ovaries. Signer Name: Westley Marquez Jr, MD Signed: 10/08/2019 2:07 PM Workstation Name: [id number]
--- NOTE | 2019-10-08 14:25 | Progress Note ---
Assessment and Plan Assessment and plan: 39-year-old woman who presents to the hospital after feeling sick for 4 days. Complained of multiple episodes of nausea vomiting and inability to tolerate p.o. She also complained of polyuria polyphagia and polydipsia. pelvic and transvag ultrasound show The endometrium is slightly thickened measuring 20 mm. Consider endometrial hyperplasia.A 6 mm cyst is identified in the endometrium. This does not appear to represent an earlyintrauterine although it should be considered. Please correlate with the patient's laboratory values and clinical history Normal ovaries.. DKA now resolved Uncontrolled new onset DM, with persistent hyperglycemia optimize sq insulin, does not have insurance, so titrating 70/30 dose hypokalemia; repleted Tobacco abuse/dependence Smoking cessation counseling performed for 10 minutes, nicotine patches when necessary Intractable nausea vomiting was due to dka, now resolved Morbid obesity Preventative health counseling performed for 17 minutes DUB; has been having constant menstrual bleeding for over a month. [employer] recommend provera x 10 days starting on 10/07, patient is not anemic. endometrial cyst?; obtain test Elevated D-dimers; VQ scan negative Sirs. No suspicion of infection in this patient. Chest x-ray negative. U cx neg for UTI, uti ruled out DVT prophylaxis chemical Dispo; home tomorrow if glc controlled Of note patient was falsely under the impression that she had ambetter insurance. But she did not make her first payment in August, therefore she is self-pay. History Interval history: c/o constant menstrual bleeding x 1 mo Review of systems Constitutional: No fevers, complaining of generalized weakness CVS: No chest pain, no orthopnea, no pedal edema GI: no nausea or vomiting. Respiratory: , no wheezing, no coughing Hospitalist Physical - Physical exam Narrative exam: General.: no distress, morbidly obese HEENT: Moist mucous membranes, extraocular muscles intact, no lymphadenopathy Neck: supple Cardiac: S1-S2 heard Lungs: clear to auscultation bilaterally Abdomen: soft , nontender, nondistended, bowel sounds positive Extremities: no edema clubbing or cyanosis Skin: no rash or lesions Neurologic: no gross focal deficits Psych: calm, and cooperative - Constitutional Vitals: Temp Pulse Resp BP Pulse Ox 98.5 F 94 H 20 149/88 100 10/08/19 05:56 10/08/19 05:56 10/08/19 05:56 10/08/19 05:56 10/08/19 05:56 Results - Labs CBC & Chem 7: 10/05/19 11:50 10/08/19 07:06 Labs: Laboratory Last Values WBC 12.1 K/mm3 (4.5-11.0) H 10/05/19 11:50 RBC 5.33 M/mm3 (3.65-5.03) H 10/05/19 11:50 Hgb 15.0 gm/dl (10.1-14.3) H 10/05/19 11:50 Hct 45.0 % (30.3-42.9) H 10/05/19 11:50 MCV 85 fl (79-97) 10/05/19 11:50 MCH 28 pg (28-32) 10/05/19 11:50 MCHC 33 % (30-34) 10/05/19 11:50 RDW 15.5 % (13.2-15.2) H 10/05/19 11:50 Plt Count 350 K/mm3 (140-440) 10/05/19 11:50 Lymph % (Auto) 13.6 % (13.4-35.0) 10/05/19 11:50 [place] % (Auto) 9.4 % (0.0-7.3) H 10/05/19 11:50 Eos % (Auto) 0.3 % (0.0-4.3) 10/05/19 11:50 Baso % (Auto) 0.8 % (0.0-1.8) 10/05/19 11:50 Lymph # 1.6 K/mm3 (1.2-5.4) 10/05/19 11:50 [place] # 1.1 K/mm3 (0.0-0.8) H 10/05/19 11:50 Eos # 0.0 K/mm3 (0.0-0.4) 10/05/19 11:50 Baso # 0.1 K/mm3 (0.0-0.1) 10/05/19 11:50 Seg Neutrophils % 75.9 % (40.0-70.0) H 10/05/19 11:50 Seg Neutrophils # 9.2 K/mm3 (1.8-7.7) H 10/05/19 11:50 D-Dimer 445.93 ng/mlDDU (0-234) H 10/05/19 11:50 ABG pH 7.381 pH Units (7.350-7.450) 10/06/19 16:42 ABG pCO2 31.2 mm Hg 10/06/19 16:42 ABG pO2 75.8 mm Hg (80.0-90.0) L 10/06/19 16:42 ABG HCO3 18.1 mmol/L (20.0-26.0) L 10/06/19 16:42 ABG O2 Saturation 96.0 % (95.0-99.0) 10/06/19 16:42 ABG O2 Content 18.3 (0.0-44) 10/06/19 16:42 ABG Base Excess -5.8 mmol/L (-2.0-3.0) L 10/06/19 16:42 ABG Hemoglobin 13.9 gm/dl (12.0-16.0) 10/06/19 16:42 ABG Carboxyhemoglobin 1.8 % (0.0-5.0) 10/06/19 16:42 ABG Methemoglobin 0.5 % (0.0-1.5) 10/06/19 16:42 Oxyhemoglobin 93.7 % (95.0-99.0) L 10/06/19 16:42 FiO2 21 % 10/06/19 16:42 Sodium 138 mmol/L (137-145) 10/08/19 07:06 Potassium 3.6 mmol/L (3.6-5.0) 10/08/19 07:06 Chloride 98.1 mmol/L (98-107) 10/08/19 07:06 Carbon Dioxide 14 mmol/L (22-30) L 10/08/19 07:06 Anion Gap 30 mmol/L 10/08/19 07:06 BUN 4 mg/dL (7-17) L 10/08/19 07:06 Creatinine 0.9 mg/dL (0.7-1.2) 10/08/19 07:06 Estimated GFR > 60 ml/min 10/08/19 07:06 BUN/Creatinine Ratio 4 % 10/08/19 07:06 Glucose 246 mg/dL (65-100) H 10/08/19 07:06 POC Glucose 236 (70-105) H 10/08/19 11:35 Hemoglobin A1c 13.3 % (4-6) H 10/08/19 07:06 Calcium 8.6 mg/dL (8.4-10.2) 10/08/19 07:06 Phosphorus 3.30 mg/dL (2.5-4.5) 10/05/19 12:58 Magnesium 2.50 mg/dL (1.7-2.3) H 10/05/19 12:58 Total Bilirubin 0.60 mg/dL (0.1-1.2) 10/05/19 11:50 AST 14 units/L (5-40) 10/05/19 11:50 ALT 18 units/L (7-56) 10/05/19 11:50 Alkaline Phosphatase 116 units/L (35-129) 10/05/19 11:50 Troponin T < 0.010 ng/mL (0.00-0.029) 10/05/19 11:50 Total Protein 9.0 g/dL (6.3-8.2) H 10/05/19 11:50 Albumin 4.8 g/dL (3.9-5) 10/05/19 11:50 Albumin/Globulin Ratio 1.1 % 10/05/19 11:50 Triglycerides 139 mg/dL (2-149) 10/08/19 07:06 Cholesterol 212 mg/dL (50-199) H 10/08/19 07:06 LDL Cholesterol Direct 151 mg/dL (50-130) H 10/08/19 07:06 HDL Cholesterol 42 mg/dL (40-59) 10/08/19 07:06 Cholesterol/HDL Ratio 5.04 % 10/08/19 07:06 Urine Color Yellow (Yellow) 10/05/19 11:40 Urine Turbidity Slightly-cloudy (Clear) 10/05/19 11:40 Urine pH 5.0 (5.0-7.0) 10/05/19 11:40 Ur Specific [place] 1.024 (1.003-1.030) 10/05/19 11:40 Urine Protein 100 mg/dl mg/dL (Negative) 10/05/19 11:40 Urine Glucose (UA) >=500 mg/dL (Negative) 10/05/19 11:40 Urine Ketones 80 mg/dL (Negative) 10/06/19 18:40 Urine Blood Lg (Negative) 10/05/19 11:40 Urine Nitrite Neg (Negative) 10/05/19 11:40 Urine Bilirubin Neg (Negative) 10/05/19 11:40 Urine Urobilinogen < 2.0 mg/dL (<2.0) 10/05/19 11:40 Ur Leukocyte Esterase Sm (Negative) 10/05/19 11:40 Urine WBC (Auto) 18.0 /HPF (0.0-6.0) H 10/05/19 11:40 Urine RBC (Auto) 13.0 /HPF (0.0-6.0) 10/05/19 11:40 U Epithel Cells (Auto) 5.0 /HPF (0-13.0) 10/05/19 11:40 Urine Mucus Few /HPF 10/05/19 11:40 Urine HCG, Qual Negative (Negative) 10/05/19 11:40 Active Medications - Current Medications Current Medications: Generic Name Dose Route Start Last Admin Trade Name Freq PRN Reason Stop Dose Admin Acetaminophen 650 mg 10/06/19 10:02 Tylenol PO Q4H PRN Pain, Mild (1-3) Albuterol 2.5 mg 10/05/19 13:45 Proventil IH Q3HRT PRN Shortness Of Breath Dextrose 0 ml 10/05/19 12:51 D50w (25gm) Syringe IV Q30MIN PRN Hypoglycemia Protocol Heparin Sodium (Porcine) 5,000 unit 10/05/19 22:00 10/08/19 09:57 Heparin SUB-Q 5,000 unit Q12HR STEVE Administration Hydralazine HCl 10 mg 10/08/19 01:42 10/08/19 02:05 Apresoline IV 10 mg Q4H PRN Administration Hypertension Sodium Chloride 1,000 mls @ 125 mls/hr 10/07/19 09:00 10/07/19 09:21 Nacl 0.45% 1000 Ml IV 125 mls/hr DIRECT STEVE Administration Insulin Human Isoph/Insulin Regular 30 unit 10/08/19 17:00 Humulin 70/30 SUB-Q BIDDIAB STEVE Insulin Human Lispro 0 unit 10/07/19 07:30 10/08/19 11:30 Humalog SUB-Q 4 unit ACHS STEVE Administration Protocol Medroxyprogesterone Acetate 10 mg 10/08/19 10:00 10/08/19 09:56 Provera PO 10 mg QDAY STEVE Administration Metformin HCl 500 mg 10/07/19 15:00 10/08/19 08:00 Glucophage Xr PO 500 mg QDDIAB STEVE Administration Metoclopramide HCl 10 mg 10/06/19 10:06 Reglan IV Q6H PRN Nausea And Vomiting Nicotine 14 mg 10/07/19 10:00 10/08/19 09:55 Habitrol TD Not Given QDAY STEVE Ondansetron HCl 4 mg 10/06/19 08:46 10/07/19 17:08 Zofran IV 4 mg Q4H PRN Administration Nausea And Vomiting Sodium Chloride 10 ml 10/05/19 22:00 10/08/19 09:57 Sodium Chloride Flush Syringe 10 Ml IV 10 ml BID STEVE Administration Sodium Chloride 10 ml 10/05/19 13:45 Sodium Chloride Flush Syringe 10 Ml IV PRN PRN LINE FLUSH Nutrition/Malnutrition Assess - Dietary Evaluation Nutrition/Malnutrition Findings: Nutrition Notes Start: 10/06/19 10:30 Freq: Status: Active Protocol: Document 10/06/19 10:30 CT (Rec: 10/06/19 10:49 CT [id number]) Co-Sign 10/06/19 10:30 LP Nutrition Notes Need for 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 Pt stated that she is unsure of UBW and that she has intentionally lost 25 lbs while dieting and exercising. Pt stated she was doing the keto diet then low CHO, high PRO diet. Gave pt education on how keto/low CHO can be dangerous for DM. Pt stated that she has not had any food for 4-5 days [employer] d/t not being able to keep anything down. Pt was experiencing nausea at time of visit, RN gave anti- emetic medication. Pt stated she did not have an appetite [employer], but has one now. Pt has not had previous diet education on DM d/t being diagnosed during this hospital visit. Pt was given DM education handout to read over when she is not nauseous. Burn Absent Trauma Absent GI Symptoms Nausea Current % PO Negligible Minimum of two criteria No Energy Intake (severe) < or equal to 50% Estimated Energy Requirement > or equal to 5 days #2 Nutrition Diagnosis Inadequate energy intake Etiology DKA As Evidenced by Signs and Symptoms <50% EER over 5 days, NPO now, nausea #1 Nutrition Diagnosis Food and nutrition-related knowledge deficit Etiology no prior knowledge on DM diet As Evidenced by Signs and Symptoms recent diagnosis of DM, DKA Is patient on ventilator? No Is Patient Ambulatory and/or Out of Bed Yes REE-([place]-ambulatory/OOB) [ [id number] [id number]] Kcal/Kg value to use for calculation 12 Approximate Energy Requirements Using 1663 kcal/Kg Calculation Used for Recommendations Kcal/kg Additional Notes Protein needs: 77-97 g/day (0. 8-1 g/kg/day AdjBW 96.57 kg) Fluid needs: 1 ml/kcal Nutrition Intervention Change Diet Order: Diet advancement to Cardiac/ Consistent CHO Teaching Recipient Patient Learning Readiness Fair Teaching Methods Handout Response to Teaching Reinforcement needed Education Handouts Provided T2DM Nutrition Therapy CHO counting for DM Barriers to Learning Physical RD phone number provided Yes Patient aware of follow up options Yes Goal #1 Advance diet when medically feasible Goal #2 Meet >75% of energy and protein needs Goal #3 Understanding of DM diet education Anticipated Discharge Needs: Cardiac/Consistent CHO Follow-Up By: 10/08/19 Additional Comments Follow up for diet advancement and diet education
[2019-10-08 16:44] LABS: HCG Qualitative,Urine Negative (Negative)
[2019-10-08] MEDS ORDERED: INSULIN NPH/REGULAR 70/30 INJ SUB-Q SCH (17:00)
[2019-10-08] MEDS ORDERED: INSULIN GLARGINE 100 UNITS/ML SUB-Q SCH (22:00)
[2019-10-08] MEDS: SODIUM CHLORIDE 0.45% 1000 ML 1,000 ML IV SCH (22:45)
[2019-10-09] MEDS: diphenhydrAMINE 50 MG/ML VIAL IV PRN ×2 (00:19→09:17)
[2019-10-09 06:12] LABS: BUN/Creatinine Ratio 3; Blood Urea Nitrogen 2 mg/dL (7-17); Calcium 8.2 mg/dL (8.4-10.2); Hemolysis Index 0
--- NOTE | 2019-10-09 06:53 | Event Note ---
Date: 10/09/19 potassium 2.6 this am (down from 3.6 on 10/09) ordered potassium replacement. check magnesium level and follow up on repeat potassium labs
[2019-10-09] MEDS ORDERED: POTASSIUM CHLORIDE 10 MEQ 10 MEQ/100 ML BAG IV ONE (07:00)
[2019-10-09] MEDS: INSULIN LISPRO 100 UNIT/ML SUB-Q SCH ×3 (08:36→17:17)
[2019-10-09] MEDS: NICOTINE 14 MG/24 HR PATCH TD SCH (09:16)
[2019-10-09] MEDS: metFORMIN XR 500MG TAB PO SCH (09:17)
[2019-10-09] MEDS: HEPARIN 5,000 UNIT/1 ML VIAL SUB-Q SCH (09:17)
[2019-10-09] MEDS: medroxyPROGESTERone ACETATE 5 MG TAB PO SCH (09:18)
[2019-10-09] MEDS: INSULIN NPH/REGULAR 70/30 INJ SUB-Q SCH ×2 (09:18→17:18)
[2019-10-09] MEDS ORDERED: POTASSIUM CHLORIDE ER 10 MEQ TAB PO SCH (10:00)
[2019-10-09] MEDS: hydrALAZINE 20 MG/1 ML INJ IV PRN (12:27)
[2019-10-09] MEDS: SODIUM CHLORIDE 0.45% 1000 ML 1,000 ML IV SCH (12:38)
--- NOTE | 2019-10-09 12:54 | Progress Note ---
Hospitalist Physical - Constitutional Vitals: Temp Pulse Resp BP Pulse Ox 98.8 F 101 H 18 170/93 96 10/09/19 11:51 10/09/19 11:51 10/09/19 11:51 10/09/19 12:27 10/09/19 11:51 General appearance: Present: mild distress Results - Labs CBC & Chem 7: 10/05/19 11:50 10/09/19 05:07 Labs: Laboratory Last Values WBC 12.1 K/mm3 (4.5-11.0) H 10/05/19 11:50 RBC 5.33 M/mm3 (3.65-5.03) H 10/05/19 11:50 Hgb 15.0 gm/dl (10.1-14.3) H 10/05/19 11:50 Hct 45.0 % (30.3-42.9) H 10/05/19 11:50 MCV 85 fl (79-97) 10/05/19 11:50 MCH 28 pg (28-32) 10/05/19 11:50 MCHC 33 % (30-34) 10/05/19 11:50 RDW 15.5 % (13.2-15.2) H 10/05/19 11:50 Plt Count 350 K/mm3 (140-440) 10/05/19 11:50 Lymph % (Auto) 13.6 % (13.4-35.0) 10/05/19 11:50 Dale % (Auto) 9.4 % (0.0-7.3) H 10/05/19 11:50 Eos % (Auto) 0.3 % (0.0-4.3) 10/05/19 11:50 Baso % (Auto) 0.8 % (0.0-1.8) 10/05/19 11:50 Lymph # 1.6 K/mm3 (1.2-5.4) 10/05/19 11:50 Dale # 1.1 K/mm3 (0.0-0.8) H 10/05/19 11:50 Eos # 0.0 K/mm3 (0.0-0.4) 10/05/19 11:50 Baso # 0.1 K/mm3 (0.0-0.1) 10/05/19 11:50 Seg Neutrophils % 75.9 % (40.0-70.0) H 10/05/19 11:50 Seg Neutrophils # 9.2 K/mm3 (1.8-7.7) H 10/05/19 11:50 D-Dimer 445.93 ng/mlDDU (0-234) H 10/05/19 11:50 ABG pH 7.381 pH Units (7.350-7.450) 10/06/19 16:42 ABG pCO2 31.2 mm Hg 10/06/19 16:42 ABG pO2 75.8 mm Hg (80.0-90.0) L 10/06/19 16:42 ABG HCO3 18.1 mmol/L (20.0-26.0) L 10/06/19 16:42 ABG O2 Saturation 96.0 % (95.0-99.0) 10/06/19 16:42 ABG O2 Content 18.3 (0.0-44) 10/06/19 16:42 ABG Base Excess -5.8 mmol/L (-2.0-3.0) L 10/06/19 16:42 ABG Hemoglobin 13.9 gm/dl (12.0-16.0) 10/06/19 16:42 ABG Carboxyhemoglobin 1.8 % (0.0-5.0) 10/06/19 16:42 ABG Methemoglobin 0.5 % (0.0-1.5) 10/06/19 16:42 Oxyhemoglobin 93.7 % (95.0-99.0) L 10/06/19 16:42 FiO2 21 % 10/06/19 16:42 Sodium 137 mmol/L (137-145) 10/09/19 05:07 Potassium 2.6 mmol/L (3.6-5.0) L* D 10/09/19 05:07 Chloride 97.0 mmol/L (98-107) L 10/09/19 05:07 Carbon Dioxide 18 mmol/L (22-30) L 10/09/19 05:07 Anion Gap 25 mmol/L 10/09/19 05:07 BUN 2 mg/dL (7-17) L 10/09/19 05:07 Creatinine 0.8 mg/dL (0.7-1.2) 10/09/19 05:07 Estimated GFR > 60 ml/min 10/09/19 05:07 BUN/Creatinine Ratio 3 % 10/09/19 05:07 Glucose 208 mg/dL (65-100) H 10/09/19 05:07 POC Glucose 256 (70-105) H 10/09/19 11:28 Hemoglobin A1c 13.3 % (4-6) H 10/08/19 07:06 Calcium 8.2 mg/dL (8.4-10.2) L 10/09/19 05:07 Phosphorus 3.30 mg/dL (2.5-4.5) 10/05/19 12:58 Magnesium 2.50 mg/dL (1.7-2.3) H 10/05/19 12:58 Total Bilirubin 0.60 mg/dL (0.1-1.2) 10/05/19 11:50 AST 14 units/L (5-40) 10/05/19 11:50 ALT 18 units/L (7-56) 10/05/19 11:50 Alkaline Phosphatase 116 units/L (35-129) 10/05/19 11:50 Troponin T < 0.010 ng/mL (0.00-0.029) 10/05/19 11:50 Total Protein 9.0 g/dL (6.3-8.2) H 10/05/19 11:50 Albumin 4.8 g/dL (3.9-5) 10/05/19 11:50 Albumin/Globulin Ratio 1.1 % 10/05/19 11:50 Triglycerides 139 mg/dL (2-149) 10/08/19 07:06 Cholesterol 212 mg/dL (50-199) H 10/08/19 07:06 LDL Cholesterol Direct 151 mg/dL (50-130) H 10/08/19 07:06 HDL Cholesterol 42 mg/dL (40-59) 10/08/19 07:06 Cholesterol/HDL Ratio 5.04 % 10/08/19 07:06 Urine Color Yellow (Yellow) 10/05/19 11:40 Urine Turbidity Slightly-cloudy (Clear) 10/05/19 11:40 Urine pH 5.0 (5.0-7.0) 10/05/19 11:40 Ur Specific Media 1.024 (1.003-1.030) 10/05/19 11:40 Urine Protein 100 mg/dl mg/dL (Negative) 10/05/19 11:40 Urine Glucose (UA) >=500 mg/dL (Negative) 10/05/19 11:40 Urine Ketones 80 mg/dL (Negative) 10/06/19 18:40 Urine Blood Lg (Negative) 10/05/19 11:40 Urine Nitrite Neg (Negative) 10/05/19 11:40 Urine Bilirubin Neg (Negative) 10/05/19 11:40 Urine Urobilinogen < 2.0 mg/dL (<2.0) 10/05/19 11:40 Ur Leukocyte Esterase Sm (Negative) 10/05/19 11:40 Urine WBC (Auto) 18.0 /HPF (0.0-6.0) H 10/05/19 11:40 Urine RBC (Auto) 13.0 /HPF (0.0-6.0) 10/05/19 11:40 U Epithel Cells (Auto) 5.0 /HPF (0-13.0) 10/05/19 11:40 Urine Mucus Few /HPF 10/05/19 11:40 Urine HCG, Qual Negative (Negative) 10/08/19 16:34 Active Medications - Current Medications Current Medications: Generic Name Dose Route Start Last Admin Trade Name Freq PRN Reason Stop Dose Admin Acetaminophen 650 mg 10/06/19 10:02 Tylenol PO Q4H PRN Pain, Mild (1-3) Albuterol 2.5 mg 10/05/19 13:45 Proventil IH Q3HRT PRN Shortness Of Breath Dextrose 0 ml 10/05/19 12:51 D50w (25gm) Syringe IV Q30MIN PRN Hypoglycemia Protocol Diphenhydramine HCl 25 mg 10/08/19 23:41 10/09/19 09:17 Benadryl IV 25 mg Q6H PRN Administration Itching Heparin Sodium (Porcine) 5,000 unit 10/05/19 22:00 10/09/19 09:17 Heparin SUB-Q 5,000 unit Q12HR STEVE Administration Hydralazine HCl 10 mg 10/08/19 01:42 10/09/19 12:27 Apresoline IV 10 mg Q4H PRN Administration Hypertension Sodium Chloride 1,000 mls @ 125 mls/hr 10/07/19 09:00 10/09/19 12:38 Nacl 0.45% 1000 Ml IV 125 mls/hr DIRECT STEVE Administration Insulin Human Isoph/Insulin Regular 35 unit 10/08/19 20:55 10/09/19 09:18 Humulin 70/30 SUB-Q 35 unit BIDDIAB STEVE Administration Insulin Human Lispro 0 unit 10/07/19 07:30 10/09/19 12:21 Humalog SUB-Q 6 unit ACHS STEVE Administration Protocol Medroxyprogesterone Acetate 10 mg 10/08/19 10:00 10/09/19 09:18 Provera PO 10 mg QDAY STEVE Administration Metformin HCl 500 mg 10/07/19 15:00 10/09/19 09:17 Glucophage Xr PO 500 mg QDDIAB STEVE Administration Metoclopramide HCl 10 mg 10/06/19 10:06 Reglan IV Q6H PRN Nausea And Vomiting Nicotine 14 mg 10/07/19 10:00 10/09/19 09:16 Habitrol TD Not Given QDAY STEVE Ondansetron HCl 4 mg 10/06/19 08:46 10/07/19 17:08 Zofran IV 4 mg Q4H PRN Administration Nausea And Vomiting Potassium Chloride 30 meq 10/09/19 10:00 10/09/19 09:17 K-Dur PO 30 meq QDAY STEVE Administration Sodium Chloride 10 ml 10/05/19 22:00 10/09/19 09:19 Sodium Chloride Flush Syringe 10 Ml IV 10 ml BID STEVE Administration Sodium Chloride 10 ml 10/05/19 13:45 Sodium Chloride Flush Syringe 10 Ml IV PRN PRN LINE FLUSH Nutrition/Malnutrition Assess - Dietary Evaluation Nutrition/Malnutrition Findings: Nutrition Notes Start: 10/06/19 10:30 Freq: Status: Active Protocol: Document 10/08/19 16:50 SRINIVAS (Rec: 10/08/19 16:53 [email or web address] S[facility]) Nutrition Notes Initial or Follow up Brief Note Current Diet Consistent CHO Labs/Tests A1C 13.3 Subjective/Other Information Pt reports fair appetite; tolerating PO. Declined ONS. Receptive to diet education. Nutrition Intervention Teaching Recipient Patient Learning Readiness Good Teaching Methods Discussion,Handout Response to Teaching Verbalize understanding Education Handouts Provided Hemoglobin A1C and Blood Sugar Control Signs and Symptoms of Hyper- and Hypoglycemia Barriers to Learning No Barriers RD phone number provided Yes Patient aware of follow up options Yes Goal #1 Adhere to CHO-controlled diet Goal #2 Improved BG control Follow-Up By: 10/12/19 Additional Comments F/U: intakes
--- NOTE | 2019-10-09 13:42 | Progress Note ---
Assessment and Plan Pt alert and awake. No complaints of chest pain, shortness of breath, or cough. She is resting comfortably on room air with an O2 saturation of 96%. She is afebrile and has a mild leukocytosis. She has a history of smoking 5-6 cigarettes a day for 15 years, counseled to stop smoking. Pt's K+ 2.6 and was repleted her repeat K+ is 3.2. - Patient Problems (1) DKA (diabetic ketoacidoses) Current Visit: Yes Status: Acute Plan to address problem: Still has an anion gap. Management as per primary care. (2) Metabolic acidosis Current Visit: Yes Status: Acute Plan to address problem: Likely due to ketoacidosis. (3) Morbid obesity Current Visit: Yes Status: Acute Plan to address problem: Recommend to loose weight (4) Nicotine dependence Current Visit: Yes Status: Acute Qualifiers: Nicotine product type: cigarettes Substance use status: in withdrawal Qualified Code(s): F17.213 - Nicotine dependence, cigarettes, with withdrawal Plan to address problem: Counseled to stop smoking. (5) Hypertension Current Visit: No Status: Acute Plan to address problem: Management as per primary care. Subjective Date of service: 10/09/19 Interval history: Pt alert and awake. No complaints of chest pain, shortness of breath, or cough. She is resting comfortably on room air with an O2 saturation of 96%. She is afebrile and has a mild leukocytosis. She has a history of smoking 5-6 cigarettes a day for 15 years, counseled to stop smoking. Pt's K+ 2.6 and was repleted her repeat K+ is 3.2. Objective Vital Signs - 12hr 10/09/19 10/09/19 10/09/19 04:37 11:51 12:27 Temperature 98.8 F 98.8 F Pulse Rate 88 101 H Respiratory 18 18 Rate Blood Pressure 143/78 173/93 170/93 O2 Sat by Pulse 99 96 Oximetry Constitutional: no acute distress, alert Eyes: non-icteric ENT: oropharynx dry Neck: supple, no lymphadenopathy, no JVD, other (short neck) Effort: normal Ascultation: Bilateral: diminished breath sounds Cardiovascular: regular rate and rhythm, other (S1,S2, no murmurs, gallops or rubs) Gastrointestinal: normoactive bowel sounds, soft, non-tender, non-distended, other (obese) Integumentary: normal Extremities: no cyanosis, no edema, pink and warm, pulses normal Neurologic: normal mental status, non-focal exam, pupils equal and round, CN II- XII normal, motor strength normal and Psychiatric: mood appropriate, anxious CBC and BMP: 10/05/19 11:50 10/09/19 13:44 ABG, PT/INR, D-dimer: ABG ABG pH 7.381 pH Units (7.350-7.450) 10/06/19 16:42 ABG pCO2 31.2 mm Hg 10/06/19 16:42 ABG pO2 75.8 mm Hg (80.0-90.0) L 10/06/19 16:42 ABG O2 Saturation 96.0 % (95.0-99.0) 10/06/19 16:42 PT/INR, D-dimer D-Dimer 445.93 ng/mlDDU (0-234) H 10/05/19 11:50 Abnormal lab findings: Abnormal Labs 10/05/19 10/05/19 10/05/19 11:40 11:45 11:50 WBC 12.1 H RBC 5.33 H Hgb 15.0 H Hct 45.0 H RDW 15.5 H Morrow % (Auto) 9.4 H [place]row # 1.1 H Seg Neutrophils % 75.9 H Seg Neutrophils # 9.2 H D-Dimer ABG pH ABG pO2 ABG HCO3 ABG Base Excess Oxyhemoglobin Sodium Potassium Chloride Carbon Dioxide BUN Glucose POC Glucose > 500 H Hemoglobin A1c Calcium Magnesium Total Protein Cholesterol LDL Cholesterol Direct Urine WBC (Auto) 18.0 H 10/05/19 10/05/19 10/05/19 11:50 11:50 12:58 WBC RBC Hgb Hct RDW [place]row % (Auto) [place]row # Seg Neutrophils % Seg Neutrophils # D-Dimer 445.93 H ABG pH ABG pO2 ABG HCO3 ABG Base Excess Oxyhemoglobin Sodium 131 L Potassium Chloride 85.4 L Carbon Dioxide 8 L* BUN Glucose 684 H* POC Glucose Hemoglobin A1c Calcium Magnesium 2.50 H Total Protein 9.0 H Cholesterol LDL Cholesterol Direct Urine WBC (Auto) 10/05/19 10/05/19 10/05/19 12:58 16:08 16:21 WBC RBC Hgb Hct RDW [place] % (Auto) [place]row # Seg Neutrophils % Seg Neutrophils # D-Dimer ABG pH ABG pO2 ABG HCO3 ABG Base Excess Oxyhemoglobin Sodium 131 L Potassium 5.3 H D Chloride 88.1 L 93.1 L Carbon Dioxide 9 L* 8 L* BUN Glucose 621 H* 374 H POC Glucose 329 H Hemoglobin A1c Calcium Magnesium Total Protein Cholesterol LDL Cholesterol Direct Urine WBC (Auto) 10/05/19 10/05/19 10/05/19 17:17 17:24 18:19 WBC RBC Hgb Hct RDW [place] % (Auto) [place]row # Seg Neutrophils % Seg Neutrophils # D-Dimer ABG pH ABG pO2 ABG HCO3 ABG Base Excess Oxyhemoglobin Sodium Potassium 3.5 L Chloride 96.4 L Carbon Dioxide 10 L BUN Glucose 272 H POC Glucose 265 H 211 H Hemoglobin A1c Calcium Magnesium Total Protein Cholesterol LDL Cholesterol Direct Urine WBC (Auto) 10/05/19 10/05/19 10/05/19 19:05 19:23 20:18 WBC RBC Hgb Hct RDW [place] % (Auto) [place] # Seg Neutrophils % Seg Neutrophils # D-Dimer ABG pH ABG pO2 ABG HCO3 ABG Base Excess Oxyhemoglobin Sodium Potassium 3.5 L Chloride 95.7 L Carbon Dioxide 11 L BUN Glucose 265 H POC Glucose 176 H 257 H Hemoglobin A1c Calcium Magnesium Total Protein Cholesterol LDL Cholesterol Direct Urine WBC (Auto) 10/05/19 10/05/19 10/05/19 21:10 21:20 22:27 WBC RBC Hgb Hct RDW [place] % (Auto) [place]row # Seg Neutrophils % Seg Neutrophils # D-Dimer ABG pH ABG pO2 ABG HCO3 ABG Base Excess Oxyhemoglobin Sodium Potassium Chloride 96.0 L Carbon Dioxide 10 L BUN Glucose 300 H POC Glucose 268 H 283 H Hemoglobin A1c Calcium Magnesium Total Protein Cholesterol LDL Cholesterol Direct Urine WBC (Auto) 10/05/19 10/05/19 10/06/19 23:13 Unknown 00:22 WBC RBC Hgb Hct RDW [place]row % (Auto) [place]row # Seg Neutrophils % Seg Neutrophils # D-Dimer ABG pH 7.311 L ABG pO2 94.3 H ABG HCO3 9.2 L ABG Base Excess -14.3 L Oxyhemoglobin 94.7 L Sodium Potassium Chloride Carbon Dioxide BUN Glucose POC Glucose 257 H 213 H Hemoglobin A1c Calcium Magnesium Total Protein Cholesterol LDL Cholesterol Direct Urine WBC (Auto) 10/06/19 10/06/19 10/06/19 01:15 02:34 03:17 WBC RBC Hgb Hct RDW [place] % (Auto) [place]row # Seg Neutrophils % Seg Neutrophils # D-Dimer ABG pH ABG pO2 ABG HCO3 ABG Base Excess Oxyhemoglobin Sodium Potassium Chloride Carbon Dioxide BUN Glucose POC Glucose 212 H 188 H 154 H Hemoglobin A1c Calcium Magnesium Total Protein Cholesterol LDL Cholesterol Direct Urine WBC (Auto) 10/06/19 10/06/19 10/06/19 04:20 04:50 05:23 WBC RBC Hgb Hct RDW [place] % (Auto) [place]row # Seg Neutrophils % Seg Neutrophils # D-Dimer ABG pH ABG pO2 ABG HCO3 ABG Base Excess Oxyhemoglobin Sodium Potassium Chloride Carbon Dioxide 12 L BUN Glucose 196 H POC Glucose 193 H 177 H Hemoglobin A1c Calcium Magnesium Total Protein Cholesterol LDL Cholesterol Direct Urine WBC (Auto) 10/06/19 10/06/19 10/06/19 05:58 06:29 07:25 WBC RBC Hgb Hct RDW [place] % (Auto) [place] # Seg Neutrophils % Seg Neutrophils # D-Dimer ABG pH ABG pO2 ABG HCO3 ABG Base Excess Oxyhemoglobin Sodium Potassium Chloride Carbon Dioxide BUN Glucose POC Glucose 192 H 173 H 185 H Hemoglobin A1c Calcium Magnesium Total Protein Cholesterol LDL Cholesterol Direct Urine WBC (Auto) 10/06/19 10/06/19 10/06/19 08:28 10:04 10:19 WBC RBC Hgb Hct RDW [place] % (Auto) [place] # Seg Neutrophils % Seg Neutrophils # D-Dimer ABG pH ABG pO2 ABG HCO3 ABG Base Excess Oxyhemoglobin Sodium Potassium Chloride Carbon Dioxide BUN Glucose POC Glucose 185 H 141 H 126 H Hemoglobin A1c Calcium Magnesium Total Protein Cholesterol LDL Cholesterol Direct Urine WBC (Auto) 10/06/19 10/06/19 10/06/19 11:59 13:03 13:55 WBC RBC Hgb Hct RDW [place] % (Auto) [place] # Seg Neutrophils % Seg Neutrophils # D-Dimer ABG pH ABG pO2 ABG HCO3 ABG Base Excess Oxyhemoglobin Sodium Potassium Chloride Carbon Dioxide BUN Glucose POC Glucose 133 H 172 H 181 H Hemoglobin A1c Calcium Magnesium Total Protein Cholesterol LDL Cholesterol Direct Urine WBC (Auto) 10/06/19 10/06/19 10/06/19 14:48 14:49 15:43 WBC RBC Hgb Hct RDW [place] % (Auto) [place] # Seg Neutrophils % Seg Neutrophils # D-Dimer ABG pH ABG pO2 ABG HCO3 ABG Base Excess Oxyhemoglobin Sodium Potassium Chloride Carbon Dioxide 15 L BUN Glucose 180 H POC Glucose 200 H 172 H Hemoglobin A1c Calcium Magnesium Total Protein Cholesterol LDL Cholesterol Direct Urine WBC (Auto) 10/06/19 10/06/19 10/06/19 16:42 16:47 18:17 WBC RBC Hgb Hct RDW [place] % (Auto) [place] # Seg Neutrophils % Seg Neutrophils # D-Dimer ABG pH ABG pO2 75.8 L ABG HCO3 18.1 L ABG Base Excess -5.8 L Oxyhemoglobin 93.7 L Sodium Potassium Chloride Carbon Dioxide BUN Glucose POC Glucose 133 H 139 H Hemoglobin A1c Calcium Magnesium Total Protein Cholesterol LDL Cholesterol Direct Urine WBC (Auto) 10/06/19 10/06/19 10/06/19 19:09 20:21 21:14 WBC RBC Hgb Hct RDW [place] % (Auto) [place] # Seg Neutrophils % Seg Neutrophils # D-Dimer ABG pH ABG pO2 ABG HCO3 ABG Base Excess Oxyhemoglobin Sodium Potassium Chloride Carbon Dioxide BUN Glucose POC Glucose 169 H 160 H 182 H Hemoglobin A1c Calcium Magnesium Total Protein Cholesterol LDL Cholesterol Direct Urine WBC (Auto) 10/06/19 10/06/19 10/07/19 22:23 23:19 00:18 WBC RBC Hgb Hct RDW [place] % (Auto) [place] # Seg Neutrophils % Seg Neutrophils # D-Dimer ABG pH ABG pO2 ABG HCO3 ABG Base Excess Oxyhemoglobin Sodium Potassium Chloride Carbon Dioxide BUN Glucose POC Glucose 161 H 165 H 130 H Hemoglobin A1c Calcium Magnesium Total Protein Cholesterol LDL Cholesterol Direct Urine WBC (Auto) 10/07/19 10/07/19 10/07/19 00:33 01:06 05:40 WBC RBC Hgb Hct RDW [place] % (Auto) [place] # Seg Neutrophils % Seg Neutrophils # D-Dimer ABG pH ABG pO2 ABG HCO3 ABG Base Excess Oxyhemoglobin Sodium Potassium 2.9 L* Chloride Carbon Dioxide 17 L 15 L BUN Glucose 137 H 211 H POC Glucose 142 H Hemoglobin A1c Calcium Magnesium Total Protein Cholesterol LDL Cholesterol Direct Urine WBC (Auto) 10/07/19 10/07/19 10/07/19 07:55 12:15 16:41 WBC RBC Hgb Hct RDW [place] % (Auto) [place] # Seg Neutrophils % Seg Neutrophils # D-Dimer ABG pH ABG pO2 ABG HCO3 ABG Base Excess Oxyhemoglobin Sodium Potassium Chloride Carbon Dioxide BUN Glucose POC Glucose 199 H 313 H 279 H Hemoglobin A1c Calcium Magnesium Total Protein Cholesterol LDL Cholesterol Direct Urine WBC (Auto) 10/07/19 10/08/19 10/08/19 22:19 07:06 07:06 WBC RBC Hgb Hct RDW [place] % (Auto) [place] # Seg Neutrophils % Seg Neutrophils # D-Dimer ABG pH ABG pO2 ABG HCO3 ABG Base Excess Oxyhemoglobin Sodium Potassium Chloride Carbon Dioxide 14 L BUN 4 L Glucose 246 H POC Glucose 302 H Hemoglobin A1c 13.3 H Calcium Magnesium Total Protein Cholesterol 212 H LDL Cholesterol Direct 151 H Urine WBC (Auto) 10/08/19 10/08/19 10/08/19 08:07 11:35 16:22 WBC RBC Hgb Hct RDW [place] % (Auto) [place] # Seg Neutrophils % Seg Neutrophils # D-Dimer ABG pH ABG pO2 ABG HCO3 ABG Base Excess Oxyhemoglobin Sodium Potassium Chloride Carbon Dioxide BUN Glucose POC Glucose 229 H 236 H 293 H Hemoglobin A1c Calcium Magnesium Total Protein Cholesterol LDL Cholesterol Direct Urine WBC (Auto) 10/08/19 10/08/19 10/09/19 20:59 22:13 05:07 WBC RBC Hgb Hct RDW [place] % (Auto) [place] # Seg Neutrophils % Seg Neutrophils # D-Dimer ABG pH ABG pO2 ABG HCO3 ABG Base Excess Oxyhemoglobin Sodium Potassium 2.6 L* D Chloride 97.0 L Carbon Dioxide 18 L BUN 2 L Glucose 208 H POC Glucose 246 H 278 H Hemoglobin A1c Calcium 8.2 L Magnesium Total Protein Cholesterol LDL Cholesterol Direct Urine WBC (Auto) 10/09/19 10/09/19 08:00 11:28 WBC RBC Hgb Hct RDW [place] % (Auto) [place] # Seg Neutrophils % Seg Neutrophils # D-Dimer ABG pH ABG pO2 ABG HCO3 ABG Base Excess Oxyhemoglobin Sodium Potassium Chloride Carbon Dioxide BUN Glucose POC Glucose 206 H 256 H Hemoglobin A1c Calcium Magnesium Total Protein Cholesterol LDL Cholesterol Direct Urine WBC (Auto)
--- NOTE | 2019-10-09 15:01 | Discharge Summary ---
Providers - Providers Date of Admission: 10/05/19 13:45 Date of discharge: 10/09/19 Attending physician: LILLY NDIAYE 10/05/19 12:51 Consult to Case Management [CONS] Routine Services Needed at Discharge: Other Notified:: COPY GIVEN TO 10/05/19 13:45 Consult to Physician [CONS] Routine Comment: Consulting Provider: DOROTHY UNGER Physician Instructions: Reason For Exam: DKA on insulin drip 10/06/19 13:15 Consult to Physician [CONS] Routine Comment: Consulting Provider: ANDREY CASTRO Physician Instructions: Reason For Exam: DUB, Bleeding x1 month Primary care physician: FINE CRAFT ARTIST Hospitalization Condition: Stable Disposition: DC-01 TO HOME OR SELFCARE Time spent for discharge: 32 min Core Measure Documentation - Palliative Care Palliative Care/ Comfort Measures: Not Applicable - Core Measures Any of the following diagnoses?: none Exam - Constitutional Vitals: Temp Pulse Resp BP Pulse Ox 98.8 F 101 H 18 170/93 96 10/09/19 11:51 10/09/19 11:51 10/09/19 11:51 10/09/19 12:27 10/09/19 11:51 General appearance: Present: no acute distress, well-nourished, obese - EENT Eyes: Present: PERRL, EOM intact - Neck Neck: Present: supple, normal ROM - Respiratory Respiratory effort: normal Respiratory: bilateral: diminished, negative: rales, rhonchi, wheezing - Cardiovascular Rhythm: regular Heart Sounds: Present: S1 & S2 - Extremities Extremities: no ischemia, No edema - Abdominal General gastrointestinal: Present: soft, non-tender, non-distended, normal bowel sounds - Integumentary Integumentary: Present: clear, warm - Musculoskeletal Musculoskeletal: strength equal bilaterally, generalized weakness - Psychiatric Psychiatric: appropriate mood/affect, cooperative - Neurologic Neurologic: moves all extremities Plan Activity: advance as tolerated Diet: diabetic Additional Instructions: Advised to see private [employer]OLD [employer] P[employer]ER SHEET IRON for your [employer] needs. 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
[2019-10-09] MEDS ORDERED: POTASSIUM CHLORIDE ER 20 MEQ TAB PO ONE (17:12)
[2019-10-09 18:50] VITALS: BP 123/78
[2019-10-10] MEDS ORDERED: amLODIPine 10 MG TAB PO SCH (10:00)
[2019-10-10] MEDS ORDERED: hydroCHLOROthiazide 12.5 MG CAP PO SCH (10:00)
== END 2019-10-09 20:10 | disposition home or self-care (01) | DRG 638 ==
LOC: ED 11:02 → CC1 13:45 → 3A 10-07 11:14
PROVIDERS: ADMIT Internal Medicine; ATTEND Internal Medicine
PROC: 4A033R1 Measurement of Arterial Saturation, Peripheral, Percutaneous Approach (ICD-10-PCS; principal; 2019-10-05)
DX: E11.10 Type 2 diabetes mellitus with ketoacidosis without coma (principal); E66.2 Morbid (severe) obesity with alveolar hypoventilation; F17.213 Nicotine dependence, cigarettes, with withdrawal; R65.10 Systemic inflammatory response syndrome (SIRS) of non-infectious origin without acute organ dysfunction; Z68.43 Body mass index [BMI] 50.0-59.9, adult; I10 Essential (primary) hypertension; W18.39XA Other fall on same level, initial encounter; E87.6 Hypokalemia; E11.65 Type 2 diabetes mellitus with hyperglycemia; N93.8 Other specified abnormal uterine and vaginal bleeding; Z79.4 Long term (current) use of insulin; Y93.89 Activity, other specified; Y92.091 Bathroom in other non-institutional residence as the place of occurrence of the external cause; Y99.8 Other external cause status; Z83.3 Family history of diabetes mellitus; Z82.49 Family history of ischemic heart disease and other diseases of the circulatory system; Z91.018 Allergy to other foods; Z71.3 Dietary counseling and surveillance
CPT/HCPCS: 36415; 36600; 71046; 76830; 76856; 78582; 80048; 80053; 80061; 81001; 81025; 82010; 82803; 82962; 83036; 83735; 84100; 84132; 84484; 85025; 85379; 87086; 93005; 93010; 94640; 96361; 96365; 96375; G0378; A9540; A9558; J0360; J0696; J1200; J1644; J1815; J2405; J3475; J3480; J7030